=== PATIENT | female | born 1935 | race Caucasian/White ===

== ENCOUNTER 2018-07-30 11:59 | Inpatient (IN) | payer MEDICARE ==
[~2018-07-30] VITALS: Ht 165.1 cm; Wt 57.3 kg
[2018-07-30 12:40] LABS: BASOPHILS 0.3 % (0-2); EOSINOPHILS 2.1 % (0-7); HEMATOCRIT 37.7 % (36.0-48.0); HEMOGLOBIN 12.2 g/dL (12-16); IMMATURE GRANULOCYTES 0.3 % (0-5); LYMPHOCYTES 11.6 % (15-50); MCH 28.9 pg (26.0-34.0); MCHC 32.4 g/dL (31.0-37.0); MCV 89.3 fL (80.0-100.0); MEAN PLATELET VOLUME 10.9 fL (7.4-10.4); MONOCYTES 8.2 % (2-11); NEUTROPHILS 77.5 % (40-80); PLATELET COUNT 227 10x3/uL (130-400); RBC 4.22 10x6/uL (4.00-5.40); RDW 13.7 % (11.5-14.5); WBC 7.8 10x3/uL (4.8-10.8)
[2018-07-30 12:56] LABS: ALBUMIN 2.6 g/dL (3.4-5.0); ALKALINE PHOSPHATASE 115 U/L (46-116); ALT (SGPT) 18 U/L (10-68); BILIRUBIN - TOTAL 0.32 mg/dL (0.2-1.3); CALC OSMOLALITY 286 mosm/kg (275-300); CALCIUM 8.9 mg/dL (8.5-10.1); CARBON DIOXIDE 33.2 mmol/L (21.0-32.0); CHLORIDE - SERUM 103 mmol/L (98-107); CREATININE - SERUM 1.4 mg/dL (0.6-1.3); GLUCOSE 95 mg/dL (74-106); POTASSIUM - SERUM 3.1 mmol/L (3.5-5.1); PROTEIN - SERUM 7.1 g/dL (6.4-8.2); SODIUM 141 mmol/L (136-145); UREA NITROGEN 28 mg/dL (7-18); eGFR NON AFRICAN AMERICAN 38 mL/min (90-120)
[2018-07-30 13:08] LABS: CKMB 2.6 U/L (0.0-3.6); CREATINE KINASE 35 UL (21-215); PRO BNP 4570 pg/mL (0-450)
[2018-07-30 13:09] LABS: APTT 30.2 SECONDS (22.8-39.4); INR 0.98 (0.85-1.17); PROTIME 12.5 SECONDS (11.6-15.0); TROPONIN-I < 0.017 ng/mL (0.000-0.060)
[2018-07-30 14:24] VITALS: BP 128/64
[2018-07-30 15:13] VITALS: BP 132/78
[2018-07-30 15:50] VITALS: BP 147/74
--- NOTE | 2018-07-30 18:06 | MORECARE ---
CASE MANAGEMENT DISCHARGE SUMMARY PATIENT: MIRIAN VALENZUELA UNIT: [id number] ADM DATE: 07/30/18 AGE: 83 : 35 SEX: F ROOM/BED: D.2136 AUTHOR: DARRON AGOSTO PHYSICIAN: REFERRING PHYSICIAN: JING ZHONG MD DATE OF SERVICE: 07/30/18 Discharge Plan Patient Name: MIRIAN VALENZUELA Facility: [facility]:[place] : 1935 Planned Disposition: Home Anticipated Discharge Date: Discharge Date: Expected LOS: Initial Reviewer: [email or web address] Initial Review Date: 07/30/2018 Generated: 07/30/18 7:05 pm Patient Name: MIRIAN VALENZUELA Page [id number] at 1806 All edits/amendments must be made on the electronic document DICTATION DATE: 07/30/181804 AUTOMATIC SCREWMAKER: TAYLOR 07/30/181804 RPT#: [id number] DC DATE: STATUS: ADM IN [facility] [address] [place] [address] END OF REPORT
--- NOTE | 2018-07-30 18:13 | MORECARE ---
CASE MANAGEMENT DISCHARGE SUMMARY PATIENT: MIRIAN VALENZUELA UNIT: [id number] ADM DATE: 07/30/18 AGE: 83 : 35 SEX: F ROOM/BED: D.2136 AUTHOR: DARRON AGOSTO PHYSICIAN: REFERRING PHYSICIAN: JING ZHONG MD DATE OF SERVICE: 07/30/18 Discharge Plan Patient Name: MIRIAN VALENZUELA Facility: [facility]:[place] : 1935 Planned Disposition: Home Anticipated Discharge Date: Discharge Date: Expected LOS: Initial Reviewer: [email or web address] Initial Review Date: 07/30/2018 Generated: 07/30/18 7:13 pm DCPIA - Discharge Planning Initial Assessment Updated by [email or web address]: Ruby Penn on 07/30/18 6:07 pm * Is the patient Alert and Oriented? Yes * How many steps to enter\exit or inside your home? ONE * PCP DR CINDI ENNIS IN [place] * Pharmacy [facility] [address] [facility]. * Preadmission Environment Home with Family * ADLs Independent * Equipment None * Other Equipment DENIES DME * List name and contact numbers for known caregivers / representatives who currently or will assist patient after discharge: PABLITO BARRY [phone] DAUGHTER * Verbal permission to speak to the caregivers and representatives has been obtained from the patient. Yes * Community resources currently utilized None * Please name any agencies selected above. N/A * Additional services required to return to the preadmission environment? No * Can the patient safely return to the preadmission environment? Yes * Has this patient been hospitalized within the prior 30 days at any hospital? No Last DP export: 07/30/18 5:05 pm Patient Name: MIRIAN VALENZUELA Page [phone] at 1813 All edits/amendments must be made on the electronic document DICTATION DATE: 07/30/181811 LEGAL OFFICE ADMINISTRATOR: TAYLOR 07/30/181811 RPT#: [id number] DC DATE: STATUS: ADM IN [facility] [address] [place] [address] END OF REPORT
--- NOTE | 2018-07-30 18:20 | MORECARE ---
CASE MANAGEMENT DISCHARGE SUMMARY PATIENT: MIRIAN VALENZUELA UNIT: [id number] ADM DATE: 07/30/18 AGE: 83 : 35 SEX: F ROOM/BED: D.7776 AUTHOR: SURENDRA,DOC PHYSICIAN: REFERRING PHYSICIAN: JING ZHONG MD DATE OF SERVICE: 07/30/18 Discharge Plan Patient Name: MIRIAN VALENZUELA Facility: [facility]:[place] : 1935 Planned Disposition: Home Anticipated Discharge Date: Discharge Date: Expected LOS: Initial Reviewer: [email or web address] Initial Review Date: 07/30/2018 Generated: 07/30/18 7:20 pm Comments DCP- Discharge Planning Updated by [email or web address]: Ruby Penn on 07/30/18 5:[address] MET WITH PATIENT AND HER DAUGHTER IN LAW, SHRUTHI AT THE BEDSIDE. THE PATIENT GAVE PERMISSION TO SPEAK WITH SHRUTHI BEING PRESENT. PATIENT IS ALERT AND ORIENTED X4. PATIENT LIVES IN HER OWN HOME AND HER DAUGHTER, LEILA, LIVES WITH HER. SHE HAS GOOD FAMILY SUPPORT. WILL HAVE TRANSPORTATION TO HOME. SHE HAS ONE STEP TO ENTER HER HOME FROM THE FRONT DOOR. NO STEPS OR STAIRS FROM THE SIDE DOOR. 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 FALLING MORE FREQUENTLY AND STATES HER BALANCE IS POOR. SHE DOES NOT USE ANY DEVICE TO AMBULATE. DENIES ANY DME. PHYSICAL THERAPY EVAL MAYBE HELPFUL. PCP- DR CINDI JIMENEZ. PULOMONARY CONSULT- DR MARTINEZ- PATIENT IS WEARING NASAL O2 BUT DOES NOT HAVE OXYGEN AT HOME. SHE IS ON 2/L WITH O2 SAT OF 96% AT REST. PATIENT AND DAUGHTER IN LAW DENIES ANY NEEDS FOR SERVICES AT HOME AT THIS TIME. CM EXPLAINED CASE MANAGEMENT CAN ASSIST IF THEY CHANGE THEIR MINDS. WILL FOLLOW TO ASSIST IS APPROPRIATE. DCPIA - Discharge Planning Initial Assessment Updated by [email or web address]: Ruby Penn on 07/30/18 6:07 pm * Is the patient Alert and Oriented? Yes * How many steps to enter\exit or inside your home? ONE * PCP DR CINDI ENNIS IN [place] * Pharmacy [facility] [address] [facility]. * Preadmission Environment Home with Family * ADLs Independent * Equipment None * Other Equipment DENIES DME * List name and contact numbers for known caregivers / representatives who currently or will assist patient after discharge: PABLITO Barrett-[phone]- DAUGHTER * Verbal permission to speak to the caregivers and representatives has been obtained from the patient. Yes * Community resources currently utilized None * Please name any agencies selected above. N/A * Additional services required to return to the preadmission environment? No * Can the patient safely return to the preadmission environment? Yes * Has this patient been hospitalized within the prior 30 days at any hospital? No Last DP export: 07/30/18 5:13 pm Patient Name: MIRIAN VALENZUELA Page [id number] at 1820 All edits/amendments must be made on the electronic document DICTATION DATE: 07/30/181819 PREDICTIVE MAINTENANCE TECHNICIAN: TAYLOR 07/30/181819 RPT#: [id number] DC DATE: STATUS: ADM IN [facility] [address] [place] [address] END OF REPORT
[2018-07-30 20:00] VITALS: BP 123/59
--- NOTE | 2018-07-30 20:09 | NUR ---
ROUNDS COMPLETED. VSS, AAOX3. RR EVEN AND UNLABORED. PT SITTING UP IN BED WITH EYES OPEN, ENSURE PROVIDED PER PT'S REQUEST. PT DENIES ANY FURTHER NEEDS AT THIS TIME. WILL CPOC. CL IN REACH, BED IN LOW, SR UP X2.
[2018-07-30 20:59] VITALS: BP 123/59; BMI 17.2
[2018-07-31] VITALS: BP 117/57
[2018-07-31 04:30] VITALS: BP 102/49
[2018-07-31 06:17] LABS: BASOPHILS 0 % (0-2); EOSINOPHILS 0 % (0-7); HEMATOCRIT 35.9 % (36.0-48.0); HEMOGLOBIN 11.7 g/dL (12-16); IMMATURE GRANULOCYTES 0.2 % (0-5); LYMPHOCYTES 9.7 % (15-50); MCH 28.8 pg (26.0-34.0); MCHC 32.6 g/dL (31.0-37.0); MCV 88.4 fL (80.0-100.0); MEAN PLATELET VOLUME 11.3 fL (7.4-10.4); MONOCYTES 0.9 % (2-11); NEUTROPHILS 89.2 % (40-80); PLATELET COUNT 251 10x3/uL (130-400); RBC 4.06 10x6/uL (4.00-5.40); RDW 13.5 % (11.5-14.5); WBC 5.9 10x3/uL (4.8-10.8)
[2018-07-31 06:39] LABS: ALBUMIN 2.2 g/dL (3.4-5.0); ANION GAP 9.5 mmol/L (8-16); BILIRUBIN - TOTAL 0.31 mg/dL (0.2-1.3); CALCIUM 8.9 mg/dL (8.5-10.1); CARBON DIOXIDE 33.8 mmol/L (21.0-32.0); CREATININE - SERUM 1.4 mg/dL (0.6-1.3); POTASSIUM - SERUM 3.3 mmol/L (3.5-5.1); PROTEIN - SERUM 6.7 g/dL (6.4-8.2)
--- NOTE | 2018-07-31 07:30 | NUR ---
A/A/OX4. DENIES ANY PAIN OR DISCOMFORT. REMAINS NPO FOR BRONCH TODAY AND IS AWARE AND UNDERSTANDS THIS. NO REQUESTS VOICED. ASSESSMENT COMPLETED WITH NO NEW PROBLEMS NOTED. BED IN LOW POSITION AND CALL LIGHT IN REACH. WILL CONTINUE POC.
[2018-07-31 09:40] VITALS: BP 105/54
--- NOTE | 2018-07-31 11:00 | NUR ---
DR. ORTIZ HERE AND PROCEDURE PERFORMED AT BEDSIDE. REMOVAL OF CYST BELOW LEFT BREAST. PT TOLERATED WELL. DRESSING C/D/I WITH NO C/O PAIN. SPECIMEN TAKEN TO LAB FOR PATHOLOGY.
--- NOTE | 2018-07-31 12:23 | NUR ---
EARLIER, DR. ORTIZ CALLED TO EXCISE CYST UNDER L BREAST. CONSENTS SIGNED.
--- NOTE | 2018-07-31 12:24 | NUR ---
1200 DR. ORTIZ HERE FOR BEDSIDE CYST EXCISION. [facility] ARENAS IS ASSISTING. TIME OUT DONE AMD SITE OF L BREAST CYST EXCISION CONFIRMED. PT DRAPED WITH STERILE TOWELS. LOCAL ANESTHESIA DONE BY DR. ORTIZ. CYST EXCISED. INCISION CLOSED AND DRESSSED WITH 4X4 AND TAPE. MINIMAL BLOOD LOSS. CYST IS PLACE IN SPECIMEN CONTAINER AND LABELED BY DR. ORTIZ. SPECIMEN SENT TO LAB. PT DANAE PROCEDURE WELL.
[2018-07-31 13:14] VITALS: BP 94/50
[2018-07-31 13:54] VITALS: Ht 165.1 cm; Wt 57.3 kg
[2018-07-31 20:00] VITALS: BP 82/35
[2018-07-31 20:38] LABS: MACROPHAGES BF 26 %; MESOTHELIALS BF 4 %; NEUT - BF 41 %
--- NOTE | 2018-07-31 21:34 | NUR ---
CHECKED PT BP Q5MINS POST PROCEDURE. BP 75/49, 69/36, 65/[address] ZHONG. ORDERED 500CC BOLUS. BOLUS CURRENTLY INFUSING. WILL CTM. CL IN REACH, FAMILY @BEDSIDE.
--- NOTE | 2018-07-31 22:05 | NUR ---
RECHECKED BP AFTER BOLUS. BP NOW 117/54. WILL CTM. PT STATES SHE IS FEELING GREAT. DENIES ANY WEAKNESS, HEADACHES OR LIGHTHEADNESS. FAMILY @BEDSIDE.
[2018-08-01] VITALS (7 sets, daily range): BP systolic 89–121; BP diastolic 41–58
--- NOTE | 2018-08-01 00:03 | NUR ---
PT STATES "I FIND IT DIFFICULT TO BREATHE." ELEVATED HOB, BUMPED O2 TO 3L. PT CURRENT O2SAT 96. EDUCATE PT ON NEED TO TURN COUGH AND DEEP BREATHS. PT VOICED THANKS. WILL CTM. FAMILY @BEDSIDE.
[2018-08-01] MEDS ORDERED: ZOCOR20 MG PO (04:07)
[2018-08-01] MEDS ORDERED: LEXAPRO10 MG PO (04:07)
[2018-08-01] MEDS ORDERED: LISINOPRIL10 MG PO (04:07)
[2018-08-01] MEDS ORDERED: VALIUM5 MG PO (04:08)
[2018-08-01] MEDS ORDERED: FUROSEMIDE40 MG PO (04:08)
[2018-08-01] MEDS ORDERED: FLUTICASONE PRO16 GM NASAL (04:09)
[2018-08-01] MEDS ORDERED: COZAAR100 MG PO (04:09)
[2018-08-01] MEDS ORDERED: ESTRACE1 MG PO (04:09)
[2018-08-01 06:02] LABS: BASOPHILS 0 % (0-2); EOSINOPHILS 0 % (0-7); HEMOGLOBIN 10.5 g/dL (12-16); IMMATURE GRANULOCYTES 0.3 % (0-5); LYMPHOCYTES 2.5 % (15-50); MCH 28.3 pg (26.0-34.0); MCHC 31.8 g/dL (31.0-37.0); MCV 88.9 fL (80.0-100.0); MEAN PLATELET VOLUME 11.3 fL (7.4-10.4); MONOCYTES 1.5 % (2-11); NEUTROPHILS 95.7 % (40-80); PLATELET COUNT 225 10x3/uL (130-400); RBC 3.71 10x6/uL (4.00-5.40); RDW 14.1 % (11.5-14.5)
[2018-08-01 06:16] LABS: ANION GAP 8.8 mmol/L (8-16); CALCIUM 8.4 mg/dL (8.5-10.1); CARBON DIOXIDE 31.4 mmol/L (21.0-32.0); CREATININE - SERUM 1.4 mg/dL (0.6-1.3); POTASSIUM - SERUM 3.2 mmol/L (3.5-5.1)
[2018-08-01 06:20] LABS: WBC 15.3 10x3/uL (4.8-10.8)
--- NOTE | 2018-08-01 08:01 | NUR ---
REPLACED POTASSIUM PER ELECTROLYTE PROTOCOL. WILL CONTINUE TO FOLLOW.
--- NOTE | 2018-08-01 13:42 | NUR ---
POTASSIUM REDRAW AFTER TREATMENT IS IN NORMAL RANGE NO FURTHER ACTION NEEDED AT THIS TIME.
--- NOTE | 2018-08-01 14:48 | NUR ---
PT CALLED REQUESTING ENSURE WITH MEALS ALONG WITH HER PRN ANXIETY PILL. PROVIDED PT WITH HER ANXIETY MEDICATION AND GOT ENSURES ORDERED. PT VOICED THANKS AND DENIES ANY FURTHER ENEDS AT THIS TIME. CL IN REACH, BED IN LOWEST, SIDE RAILS X2. WILL CTM.
--- NOTE | 2018-08-01 19:31 | NUR ---
RECIEVED UP IN BED WITH SEVERAL VISITORS AT BEDSIDE. ALERT AND ORIENTED X4. REQUIRES ASSIST TO TRANSFER AND AMBULATE. CONTINENT OF B/B. O2@ 3.5 LITERS PER N/C. LUNG SOUNDS CRACKLE BILATERALLY. IV TO LEFT FA SL.. DSG UNDER LEFT BREAST AND TO RIGHT BACK. DENIES ANY NEEDS AT THIS TIME.
[2018-08-02 04:30] VITALS: BP 129/60
[2018-08-02 05:33] LABS: BASOPHILS 0 % (0-2); EOSINOPHILS 0 % (0-7); HEMATOCRIT 34.3 % (36.0-48.0); HEMOGLOBIN 10.7 g/dL (12-16); IMMATURE GRANULOCYTES 0.7 % (0-5); LYMPHOCYTES 1.8 % (15-50); MCH 28.1 pg (26.0-34.0); MCHC 31.2 g/dL (31.0-37.0); MEAN PLATELET VOLUME 11.5 fL (7.4-10.4); MONOCYTES 1.1 % (2-11); NEUTROPHILS 96.4 % (40-80); PLATELET COUNT 231 10x3/uL (130-400); RBC 3.81 10x6/uL (4.00-5.40); RDW 14.3 % (11.5-14.5); WBC 16.9 10x3/uL (4.8-10.8)
[2018-08-02 05:41] LABS: ANION GAP 8.5 mmol/L (8-16); CALCIUM 8.7 mg/dL (8.5-10.1); CARBON DIOXIDE 31.6 mmol/L (21.0-32.0); CREATININE - SERUM 1.3 mg/dL (0.6-1.3); POTASSIUM - SERUM 4.1 mmol/L (3.5-5.1)
[2018-08-02 07:56] VITALS: BP 123/57
--- NOTE | 2018-08-02 10:27 | NUR ---
PT SITTING UP IN HER BEDSIDE CHAIR STATES SHE IS FEELING GOOD. RR NONLABORED ON NC @3.5L. PT COUGHING UP BRIGHT RED SPUTUM SCANT/MODERATE AMOUNTS, 4 TISSUES THROWN AWAY WITH SMALL AMOUNTS. AT BEDSIDE AND SEEN AND D/C FLUTTER VALVE TO AVOID IRRITATION. NEW MEDICATION STARTED MUCINEX AND TEACHING PROVIDED TO PT. PT VERBALIZED UNDERSTANDING AND WILL SHOW US ANY SPUTUM OR BLOOD. CL IN REACH, FAMILY AT BEDSIDE. WILL CTM.
[2018-08-02 11:22] VITALS: BP 133/66
[2018-08-02 13:07] LABS: ACID FAST SMEAR Negative (()); AFB SPECIMEN PROCESSING Concentration (())
[2018-08-02 16:49] VITALS: BP 115/58
--- NOTE | 2018-08-02 18:04 | NUR ---
END OF SHIFT ROUNDS COMPLETED. PT STATES SHE HAD A GOOD DAY AND IS FEELING BETTER OVERALL. NO FURTHER BLOODY SPUTUM. RR NONLABORED WITH NC @3.5L IN PLACE WILL TAPER DOWN TO 2.5L NC AND SEE HOW SHE DOES SHE DOESNT NORMALLY REQUIRE OXYGEN AT HOME. FAMILY AT BEDSIDE. CL IN REACH, BED IN LOWEST, SIDE RAILS X2. WILL CTM.
--- NOTE | 2018-08-02 19:49 | NUR ---
RECIEVED UP IN BED WITH MANY VISITORS AT BEDSIDE. ALERT AND ORIENTED X4. IV TO LEFT FA SL..DSG UNDER LEFT BREAST CDI. O2 @ 3.5 LITERWS PER N/C IN PLACE. RESP EVEN AND UNLABORED. BSX4Q. DENIES ANY NEEDS AT THIS TIME.
[2018-08-02 20:07] VITALS: BP 134/62
[2018-08-02 23:49] VITALS: BP 150/63
[2018-08-03 04:23] VITALS: BP 101/56
[2018-08-03 05:03] LABS: BASOPHILS 0 % (0-2); EOSINOPHILS 0 % (0-7); HEMATOCRIT 32.8 % (36.0-48.0); HEMOGLOBIN 10.5 g/dL (12-16); IMMATURE GRANULOCYTES 0.7 % (0-5); LYMPHOCYTES 2.8 % (15-50); MCH 28.8 pg (26.0-34.0); MCV 89.9 fL (80.0-100.0); MEAN PLATELET VOLUME 11.2 fL (7.4-10.4); MONOCYTES 2.5 % (2-11); PLATELET COUNT 195 10x3/uL (130-400); RBC 3.65 10x6/uL (4.00-5.40); RDW 14.4 % (11.5-14.5); WBC 14.9 10x3/uL (4.8-10.8)
[2018-08-03 05:39] LABS: ANION GAP 9.3 mmol/L (8-16); CALCIUM 9.1 mg/dL (8.5-10.1); CARBON DIOXIDE 31.9 mmol/L (21.0-32.0); CREATININE - SERUM 1.2 mg/dL (0.6-1.3); POTASSIUM - SERUM 4.2 mmol/L (3.5-5.1)
--- NOTE | 2018-08-03 07:10 | NUR ---
ASSESSMENT PER FLOW SHEET. PT IS WITHOUT DISTRESS. FAMILY AT BEDSIDE.CALL LIGHT IN REACH
[2018-08-03 08:08] VITALS: BP 94/45
[2018-08-03 11:57] VITALS: BP 97/54
[2018-08-03 15:44] VITALS: BP 113/68
--- NOTE | 2018-08-03 16:59 | NUR ---
FAMILY AT BEDSIDE. PT REMAINS WITHOUT NEEDS
--- NOTE | 2018-08-03 18:36 | NUR ---
REMAINS WITHIOUT CHANGE FROM INITIAL SHIFTY ASSESSMENT.CONT PLAN OF CARE
--- NOTE | 2018-08-03 19:01 | NUR ---
IV SITED TO LEFT UPPER ARM X1 STICK USING ASEPTIC TECH,22G
--- NOTE | 2018-08-03 19:05 | NUR ---
IV LEFT FA DCD WITH CATH TIP INTACT
--- NOTE | 2018-08-03 19:29 | NUR ---
EVENING ROUNDS COMPLETED. REPORT RECEIVED. PT SITTING UP IN BED WITH EYES OPEN, RR EVEN AND UNLABORED. OXYGEN AT 3.5 LITERS BY NASAL CANNULA. BED IN LOW POSITION. NO S/S OF DISTRESS NOTED. INTRODUCED SELF TO PT. PT DENIES FURTHER NEEDS AT THIS TIME. ORDERED ABX INFUSING THROUGH LEFT UPPER ARM PIV. CALL LIGHT IN REACH. WILL CTM.
[2018-08-03 21:25] VITALS: BP 138/57
[2018-08-04 01:56] VITALS: BP 158/61
--- NOTE | 2018-08-04 05:00 | NUR ---
I have reviewed this patient and I concur with the Shift Assessment completed by the Licensed Practical Nurse today this shift.
[2018-08-04 06:22] LABS: BASOPHILS 0 % (0-2); EOSINOPHILS 0 % (0-7); HEMATOCRIT 34.3 % (36.0-48.0); HEMOGLOBIN 10.9 g/dL (12-16); IMMATURE GRANULOCYTES 0.7 % (0-5); LYMPHOCYTES 2.5 % (15-50); MCH 28.6 pg (26.0-34.0); MCHC 31.8 g/dL (31.0-37.0); MEAN PLATELET VOLUME 11.5 fL (7.4-10.4); MONOCYTES 2.1 % (2-11); NEUTROPHILS 94.7 % (40-80); PLATELET COUNT 223 10x3/uL (130-400); RBC 3.81 10x6/uL (4.00-5.40); RDW 14.5 % (11.5-14.5); WBC 13.6 10x3/uL (4.8-10.8)
[2018-08-04 06:23] VITALS: BP 107/50
[2018-08-04 06:26] LABS: CALCIUM 8.8 mg/dL (8.5-10.1); CARBON DIOXIDE 31.4 mmol/L (21.0-32.0); POTASSIUM - SERUM 4.4 mmol/L (3.5-5.1)
--- NOTE | 2018-08-04 07:43 | NUR ---
MORNING ROUNDS MADE. PT LAYING IN BED RESTING. A/O X 4. DENIES PAIN AT THIS TIME. FAMILY AT BEDSIDE. L UPPER ARM IV SL. DRSG C/D/I, NO REDNESS OR EDEMA NOTED, PATENT. 3.5L O2 VIA NC. BREATHING EVEN AND UNLABORED. DRSG TO L BREAST, C/D/I. NO COUGH NOTED AT THIS TIME. NO EDEMA NOTED. DENIES FURTHER CONCENRS AT THIS TIME. FALL PRECAUTIONS IN PLACE. NON SKID SOCKS ON. YELLOW GOWN ON. SR UP X 2. BED LOWERED AND LOCKED. CL IN REACH. WILL CTM.
[2018-08-04 07:44] VITALS: BP 120/61
--- NOTE | 2018-08-04 08:46 | NUR ---
VITALS STABLE. PT TOOK MEDS WITHOUT DIFFICULTY. DENIES PAIN AT THIS TIME. FAMILY AT BEDSIDE. BREATHING EVEN AND UNLABORED. IV TO L AC, PATENT, NO REDNESS OR EDEMA NOTED. DRSG C/D/I. NO FURTHER CONCERNS AT THIS TIME. FALL PRECAUTIONS IN PLACE. FAMILY AT BEDSIDE. WILL CTM.
--- NOTE | 2018-08-04 10:42 | NUR ---
PT COUGHING UP DARK RED BLOOD. WILL CTM.
[2018-08-04 11:49] VITALS: BP 123/65
--- NOTE | 2018-08-04 12:26 | EC ---
PATIENT:MIRIAN VALENZUELA DATE OF SERVICE: 07/30/18 SEX: F MEDICAL RECORD: [id number] DATE OF : [birth year] LOCATION:D.M2 D.213 AGE OF PATIENT: 83 ADMISSION DATE: 07/30/18 REFERRING PHYSICIAN: INTERPRETING PHYSICIAN: JULIO CESPEDES MD ECHOCARDIOGRAM REPORT ECHO CHARGES 4 ECHO COMPLETE Date: 07/31/18 CLINICAL DIAGNOSIS: NEW ONSET CHF ECHOCARDIOGRAPHIC MEASUREMENTS (adult normal given) AC root (d.<3.7cm) 2.8 cm LV Septum d (<1.2 cm> 2.4 cm Valve Excursion 1.7 cm LV Septum (systole) 2.5 cm Left Atria (s.<4.0cm> 3.0 cm LVPW d(<1.2cm) 1.5 cm RV (d.<2.3cm) 1.7 cm LVPW (sytole) 2.0 cm LV diastole(<5.6CM) 2.4 cm MV E-F(>70mm/sec) cm LV systole 0.8 cm LVOT Diameter 1.6 cm MV exc.(>10mm) cm Est.ejection fraction (50-75%) % DOPPLER: LVIT cm/sec A 163 cm/sec E 85.0 cm/sec LA cm/sec RVSP 19.0 mmHg LVOT 108 cm/sec AOP1/2T m/s Asc. Ao 141 cm/sec RVOT 106 cm/sec RA cm/sec PA 122 cm/sec AV Gradient Peak 8.0 mmHg AV Mean 3.9 mmHg AV Area 1.5 cm MV Gradient Peak 14.0 mmHg MV Mean 4.4 mmHg MV Area cm COMMENTS: Pecan Grower: 1 MALKA GILMOREOE Wheel Truing Machine Tender: 3 Dr. Cruz TAPE# PACS Pericardial Effusion Y DATE OF SERVICE: Adequate 2D, Color Flow, Spectral Doppler, and M-Mode LVH is present. LV internal dimension is normal. Wall motion is normal. EF is greater than or equal to 55%. Aortic valve sclerosis without stenosis by Doppler interrogation. Left atrium is normal at 3.0 cm. Mitral valve shows no prolapse. Mitral annular calcification is present with only mild MR. Right-sided chambers are normal. Trace TR. ECHOCARDIOGRAM REPORT [id number] MIRIAN VALENZUELA TRANSINT:[id number] Voice Confirmation ID: [id number] DOCUMENT ID: [id number] JULIO CESPEDES MD at 1226 CC: [id number] DICTATION DATE: 07/31/18 144 BAG SEALER: 07/31/182026 ADM IN [facility] [address] [place] [id number]
[2018-08-04 14:57] VITALS: BP 131/69
--- NOTE | 2018-08-04 16:31 | NUR ---
I have reviewed this patient and I concur with the Shift Assessment completed by the Licensed Practical Nurse today this shift.
[2018-08-04 20:31] VITALS: BP 145/61
[2018-08-05] VITALS (7 sets, daily range): BP systolic 108–139; BP diastolic 51–91
--- NOTE | 2018-08-05 03:47 | NUR ---
I have reviewed this patient and I concur with the Shift Assessment completed by the Licensed Practical Nurse today this shift.
[2018-08-05 06:25] LABS: BASOPHILS 0 % (0-2); EOSINOPHILS 0 % (0-7); HEMATOCRIT 34.4 % (36.0-48.0); HEMOGLOBIN 10.9 g/dL (12-16); IMMATURE GRANULOCYTES 0.5 % (0-5); MCH 28.4 pg (26.0-34.0); MCHC 31.7 g/dL (31.0-37.0); MCV 89.6 fL (80.0-100.0); MEAN PLATELET VOLUME 11.5 fL (7.4-10.4); MONOCYTES 3.5 % (2-11); PLATELET COUNT 243 10x3/uL (130-400); RBC 3.84 10x6/uL (4.00-5.40); RDW 14.6 % (11.5-14.5); WBC 14.6 10x3/uL (4.8-10.8)
[2018-08-05 06:52] LABS: ANION GAP 6.7 mmol/L (8-16); CALCIUM 8.6 mg/dL (8.5-10.1); CARBON DIOXIDE 32.6 mmol/L (21.0-32.0); CREATININE - SERUM 1.1 mg/dL (0.6-1.3); MAGNESIUM - SERUM 2.3 mg/dL (1.8-2.4); PHOSPHOROUS 3.6 mg/dL (2.5-4.9); POTASSIUM - SERUM 4.3 mmol/L (3.5-5.1)
--- NOTE | 2018-08-05 07:53 | NUR ---
PT RESTING IN BED. NO SIGNS OF DISTRESS. IV TO LEFT FORARM PATENT NO REDNESS OR TENDERNESS. ON TELEMETRY 107 CONT. A-FIB. ON 3.5L NC. DENIES ANY NEED AT THIS TIME. CALL LIGHT IN REACH. BED LOW POSITION. NO FAMILY AT BEDSIDE AT THIS TIME.
--- NOTE | 2018-08-05 09:06 | NUR ---
Nutrition follow-up: Visited with pt during rounds. Pt is happy with meals and reports a good appetite. Sister states she is filling out pts menus and is assisting pt with eating Diet: Low sodium with po intake 100% of last 3 meals Labs reviewed Wt: 109# +BM RDN following.
--- NOTE | 2018-08-05 10:22 | NUR ---
I have reviewed this patient and I concur with the Shift Assessment completed by the Licensed Practical Nurse today this shift.
--- NOTE | 2018-08-05 19:50 | NUR ---
RESUMING PT CARE. PT IS ALERT LAYING IN BED. FAMILY AT BEDSIDE. NO C/O VOICED. NO S/S OF DISTRESS NOTED. BED IN LOW POSITION WITH CALL LIGHT IN REACH. SIDE RAILS UP X 2. WILL CONTINUE TO MONITOR PT AND FOLLOW PLAN OF CARE.
--- NOTE | 2018-08-06 02:10 | NUR ---
I have reviewed this patient and I concur with the Shift Assessment completed by the Licensed Practical Nurse today this shift.
[2018-08-06 05:20] VITALS: BP 130/50
[2018-08-06 05:40] LABS: BASOPHILS 0.1 % (0-2); EOSINOPHILS 0.1 % (0-7); HEMATOCRIT 34.7 % (36.0-48.0); HEMOGLOBIN 10.8 g/dL (12-16); IMMATURE GRANULOCYTES 0.8 % (0-5); LYMPHOCYTES 6.9 % (15-50); MCH 28.2 pg (26.0-34.0); MCHC 31.1 g/dL (31.0-37.0); MCV 90.6 fL (80.0-100.0); MEAN PLATELET VOLUME 11.5 fL (7.4-10.4); MONOCYTES 9.4 % (2-11); NEUTROPHILS 82.7 % (40-80); PLATELET COUNT 259 10x3/uL (130-400); RBC 3.83 10x6/uL (4.00-5.40); RDW 14.8 % (11.5-14.5); WBC 18.1 10x3/uL (4.8-10.8)
[2018-08-06 06:14] LABS: ALBUMIN 1.9 g/dL (3.4-5.0); ANION GAP 8.3 mmol/L (8-16); BILIRUBIN - TOTAL 0.4 mg/dL (0.2-1.3); CALCIUM 8.7 mg/dL (8.5-10.1); CARBON DIOXIDE 33.9 mmol/L (21.0-32.0); POTASSIUM - SERUM 4.2 mmol/L (3.5-5.1); PROTEIN - SERUM 5.7 g/dL (6.4-8.2)
--- NOTE | 2018-08-06 06:40 | NUR ---
PLEASE CHECK HEART RATE BEFORE GIVING CARDIZEM 120MG BY MOUTH.
[2018-08-06 08:00] VITALS: BP 107/44
[2018-08-06 12:38] VITALS: BP 108/49
--- NOTE | 2018-08-06 12:54 | NUR ---
I have reviewed this patient and I concur with the Shift Assessment completed by the Licensed Practical Nurse today this shift.
[2018-08-06 16:30] VITALS: BP 128/59
--- NOTE | 2018-08-06 19:46 | NUR ---
PATIENT SITTING UP IN BED. NO COMPLAINTS AT THIS TIME. NO DISTRESS NOTED. FAMILY AT BEDSIDE.
[2018-08-06 20:00] VITALS: BP 106/55
[2018-08-07] VITALS: BP 121/56
--- NOTE | 2018-08-07 02:28 | NUR ---
PATIENT LAYING IN BED. EYES CLOSED, CHEST RISING AND FALLING. NO DISTRESS NOTED. FAMILY AT BEDSIDE.
[2018-08-07 04:00] VITALS: BP 123/52
[2018-08-07 07:13] LABS: BASOPHILS 0 % (0-2); EOSINOPHILS 0.2 % (0-7); HEMATOCRIT 32.5 % (36.0-48.0); HEMOGLOBIN 10.1 g/dL (12-16); IMMATURE GRANULOCYTES 0.6 % (0-5); LYMPHOCYTES 7.7 % (15-50); MCH 28.5 pg (26.0-34.0); MCHC 31.1 g/dL (31.0-37.0); MCV 91.5 fL (80.0-100.0); MEAN PLATELET VOLUME 11.7 fL (7.4-10.4); MONOCYTES 10.5 % (2-11); PLATELET COUNT 236 10x3/uL (130-400); RBC 3.55 10x6/uL (4.00-5.40); RDW 14.4 % (11.5-14.5)
--- NOTE | 2018-08-07 07:35 | NUR ---
PT SITTING UP IN BED WITH FAMILY AT BEDSIDE. NO ACUTE DISTRESS NOTED. O2 @ 3L NC IN PLACE. SALINE LOC TO LEFT FOREARM, PATENT, WITHOUT REDNESS OR EDEMA. DENIES PAIN AT THIS TIME. PT DOES REPORT OCCASSIONAL COUGH, REPORTS "NOT BAD ITS BEEN BEING." DENIES FURTHER NEEDS AT THIS TIME. ENCOURAGED TO CALL WITH NEEDS. CL WITHIN REACH. CONTINUE POC
[2018-08-07 07:36] VITALS: BP 134/60
[2018-08-07 07:41] LABS: ALBUMIN 1.7 g/dL (3.4-5.0); ANION GAP 7.1 mmol/L (8-16); BILIRUBIN - TOTAL 0.27 mg/dL (0.2-1.3); CALCIUM 8.8 mg/dL (8.5-10.1); CARBON DIOXIDE 35.5 mmol/L (21.0-32.0); POTASSIUM - SERUM 3.6 mmol/L (3.5-5.1); PROTEIN - SERUM 5.2 g/dL (6.4-8.2)
--- NOTE | 2018-08-07 10:15 | NUR ---
PT SITTING UP IN CHAIR AT BEDSIDE. DENIES FURTHER NEEDS AT THIS TIME. CL WITHIN REACH. ENCOURAGED TO CALL WITH NEEDS. CONTINUE TO MONITOR.
[2018-08-07 11:24] VITALS: BP 121/55
[2018-08-07 15:39] VITALS: BP 116/58
--- NOTE | 2018-08-07 17:12 | MORECARE ---
CASE MANAGEMENT DISCHARGE SUMMARY PATIENT: MIRIAN VALENZUELA UNIT: [id number] ADM DATE: 07/30/18 AGE: 83 : 35 SEX: F ROOM/BED: D.6686 AUTHOR: SURENDRA,DOC PHYSICIAN: REFERRING PHYSICIAN: JING ZHONG MD DATE OF SERVICE: 08/07/18 Discharge Plan Patient Name: MIRIAN VALENZUELA Facility: [facility]:[place] : 1935 Planned Disposition: Home Anticipated Discharge Date: Discharge Date: Expected LOS: Initial Reviewer: [email or web address] Initial Review Date: 07/30/2018 Generated: 08/07/18 6:11 pm Comments DCP- Discharge Planning Updated by [email or web address]: Manny Preez on 08/07/18 4:[address] Patient Name: MIRIAN VALENZUELA Admission Status: ER Accout number: [id number] Admission Date: 07-30-2018 : 1935 Admission Diagnosis:SHORTNESS OF BREATH Attending: JING ZHONG Current LOS: 8 Anticipated DC Date: Planned Disposition: Home Primary Insurance: [employer] ADV Discharge Planning Comments: CM RECEIVED REQUEST TO MEET WITH PT AND HER FAMILY IN ROOM. CM MET WITH PT AND HER SON, ROCKY STEELE, , IN ROOM TO DISCUSS DISCHARGE NEEDS AND PLANNING. MIRIAN VALENZUELA provided verbal consent to discuss current and ongoing needs with/in the presence of: ROCKY, HER SON. PT REPORTS SHE WILL NEED A WALKER FOR DISCHARGE HOME NEXT WEEK AND MAY NEED OXYGEN. THEY WANT TO USE [employer] AND IF NOT IN INSURANCE NETWORK, ANY COMPANY WILL DO. CHOICE LETTER SIGNED. FOR DISCHARGE, PT WILL NEED A WALKER AND ALSO OXYGEN TESTING TO DETERMINE HOME OXYGEN NEEDS. PT WANTS TO USE [employer] OR ANY IN NETWORK PROVIDER WITH HER INSURANCE. CM TO CONTINUE TO FOLLOW AND ASSIST NEEDED. Swimming Pool Service Technician: Manny Perez DCP- Discharge Planning Updated by [id number]: Ruby Penn on 07/30/18 5:[address] MET WITH PATIENT AND HER DAUGHTER IN LAW, SHRUTHI AT THE BEDSIDE. THE PATIENT GAVE PERMISSION TO SPEAK WITH SHRUTHI BEING PRESENT. PATIENT IS ALERT AND ORIENTED X4. PATIENT LIVES IN HER OWN HOME AND HER DAUGHTER, LEILA, LIVES WITH HER. SHE HAS GOOD FAMILY SUPPORT. WILL HAVE TRANSPORTATION TO HOME. SHE HAS ONE STEP TO ENTER HER HOME FROM THE FRONT DOOR. NO STEPS OR STAIRS FROM THE SIDE DOOR. 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 FALLING MORE FREQUENTLY AND STATES HER BALANCE IS POOR. SHE DOES NOT USE ANY DEVICE TO AMBULATE. DENIES ANY DME. PHYSICAL THERAPY EVAL MAYBE HELPFUL. PCP- DR CINDI JIMENEZ. PULOMONARY CONSULT- DR MARTINEZ- PATIENT IS WEARING NASAL O2 BUT DOES NOT HAVE OXYGEN AT HOME. SHE IS ON 2/L WITH O2 SAT OF 96% AT REST. PATIENT AND DAUGHTER IN LAW DENIES ANY NEEDS FOR SERVICES AT HOME AT THIS TIME. CM EXPLAINED CASE MANAGEMENT CAN ASSIST IF THEY CHANGE THEIR MINDS. WILL FOLLOW TO ASSIST IS APPROPRIATE. DCPIA - Discharge Planning Initial Assessment Updated by [email or web address]: Ruby Penn on 07/30/18 6:07 pm * Is the patient Alert and Oriented? Yes * How many steps to enter\exit or inside your home? ONE * PCP DR CINDI ENNIS IN [place] * Pharmacy [facility]. * Preadmission Environment Home with Family * ADLs Independent * Equipment None * Other Equipment DENIES DME * List name and contact numbers for known caregivers / representatives who currently or will assist patient after discharge: PABLITO BARRY [phone] DAUGHTER * Verbal permission to speak to the caregivers and representatives has been obtained from the patient. Yes * Community resources currently utilized None * Please name any agencies selected above. N/A * Additional services required to return to the preadmission environment? No * Can the patient safely return to the preadmission environment? Yes * Has this patient been hospitalized within the prior 30 days at any hospital? No Coverage Notice Reviewer: [id number] - Manny Perez Notice Issued Date-Time: 08/07/2018 16:20 Notice Type: Patient Choice Letter Notice Delivered To: Patient Relationship to Patient: Automatic Thread Winder Name: Delivery Method: HAND - Hand Delivered Negrita Days: Prior Verbal Notification: Recipient Understood Notice: Yes Recipient Signature: Yes Med Rec Note Co-signed by Attending: Coverage Notice Comment: DAVID Last DP export: 07/30/18 5:20 pm Patient Name: MIRIAN VALENZUELA Page [phone] at 1712 All edits/amendments must be made on the electronic document DICTATION DATE: 08/07/181710 TOILET AND LAUNDRY SOAP SUPERVISOR: TAYLOR 08/07/181710 RPT#: [id number] DC DATE: STATUS: ADM IN [facility] [address] [place] [address] END OF REPORT
--- NOTE | 2018-08-07 18:31 | NUR ---
WORK ORDER PLACED TO REPAIR ROOM THERMOSTAT
--- NOTE | 2018-08-07 19:35 | NUR ---
RECEIVED REPORT, WILL ASSUME CARE OF PT, PT IS SLEEPING, FAMILY AT BEDSIDE, BED IS LOW, SRX2, CALL LIGHT IN REACH, WILL CONTINUE PLAN OF CARE
[2018-08-07 20:00] VITALS: BP 137/51
--- NOTE | 2018-08-07 21:23 | NUR ---
PM MEDS GIVEN, PROVIDED FRESH ICE WATER, DAUGHTER IN ROOM, CALL LIGHT IN REACH, WILL CONTINUE PLAN OF CARE
[2018-08-08] VITALS: BP 115/63
--- NOTE | 2018-08-08 02:55 | NUR ---
I have reviewed this patient and I concur with the Shift Assessment completed by the Licensed Practical Nurse today this shift.
[2018-08-08 04:00] VITALS: BP 133/56
[2018-08-08 05:53] LABS: BASOPHILS 0.1 % (0-2); EOSINOPHILS 0 % (0-7); HEMATOCRIT 33.1 % (36.0-48.0); HEMOGLOBIN 10.2 g/dL (12-16); IMMATURE GRANULOCYTES 0.9 % (0-5); LYMPHOCYTES 5.3 % (15-50); MCH 28.3 pg (26.0-34.0); MCHC 30.8 g/dL (31.0-37.0); MCV 91.7 fL (80.0-100.0); MEAN PLATELET VOLUME 12.1 fL (7.4-10.4); MONOCYTES 7.2 % (2-11); NEUTROPHILS 86.5 % (40-80); PLATELET COUNT 245 10x3/uL (130-400); RBC 3.61 10x6/uL (4.00-5.40); WBC 16.3 10x3/uL (4.8-10.8)
[2018-08-08 06:13] LABS: ALBUMIN 1.7 g/dL (3.4-5.0); BILIRUBIN - TOTAL 0.3 mg/dL (0.2-1.3); CALCIUM 8.7 mg/dL (8.5-10.1); CARBON DIOXIDE 36.8 mmol/L (21.0-32.0); CREATININE - SERUM 0.8 mg/dL (0.6-1.3); POTASSIUM - SERUM 3.8 mmol/L (3.5-5.1); PROTEIN - SERUM 5.3 g/dL (6.4-8.2)
[2018-08-08 08:00] VITALS: BP 121/51
--- NOTE | 2018-08-08 08:34 | NUR ---
PT RESTING IN BED, SHIFT ASSESSMENT PERFORMED. DAUGHTER AT BESIDE ASSITING WITH TRAY SET-UP. DENIES ANY NEEDS AT THIS TIME. WILL CONT TO FOLLOW POC
[2018-08-08 12:00] VITALS: BP 142/51
--- NOTE | 2018-08-08 12:45 | NUR ---
PT RESTING IN BED, FAMILY AT BEDSIDE. DENIES NEEDS AT THIS TIME. WILL CONT TO FOLLOW POC
[2018-08-08 16:30] VITALS: BP 136/62
--- NOTE | 2018-08-08 17:56 | NUR ---
PT PIV TO LEFT AC INFILTRATED, REMOVED WITH CATHETER TIP INTACT. 22G PIV INSERTED TO PT LEFT WRIST X1 ATTEMPT. PT TOLERATED WELL. WILL CONT TO FOLLO POC
--- NOTE | 2018-08-08 20:06 | NUR ---
EVENING ROUNDS COMPLETED. REPORT RECEIVED. PT SITTING UP IN BED WITH EYES OPEN, RR EVEN AND UNLABORED. NO S/S OF DISTRESS NOTED. INTRODUCED SELF TO PT. PT ANSWERS QUESTIONS APPROPRIATELY AND REQUESTS AN ANALGESIC FOR COMPLAINTS OF PAIN IN HER BACK. PT STATES THE PAIN IS A 7 ON A SCALE OF 0-10. REPLACED PT ARM BAND AND APPLIED TO RIGHT WRIST. PT DENIES FURTHER NEEDS AT THIS TIME. CALL LIGHT IN REACH.
[2018-08-08 20:18] VITALS: BP 123/50
[2018-08-09] VITALS (7 sets, daily range): BP systolic 110–154; BP diastolic 45–69
--- NOTE | 2018-08-09 00:20 | NUR ---
I have reviewed this patient and I concur with the Shift Assessment completed by the Licensed Practical Nurse today this shift.
--- NOTE | 2018-08-09 00:33 | NUR ---
ORDERED 2100 BETAPACE HELD, PT HEART RATE RUNNING 48-52 ON TELEMETRY. APICAL PULSE RATE OF 53.
[2018-08-09 05:47] LABS: BASOPHILS 0 % (0-2); EOSINOPHILS 0.2 % (0-7); HEMATOCRIT 33.7 % (36.0-48.0); HEMOGLOBIN 10.4 g/dL (12-16); IMMATURE GRANULOCYTES 0.9 % (0-5); LYMPHOCYTES 8.5 % (15-50); MCH 28.5 pg (26.0-34.0); MCHC 30.9 g/dL (31.0-37.0); MCV 92.3 fL (80.0-100.0); MEAN PLATELET VOLUME 11.9 fL (7.4-10.4); MONOCYTES 6.6 % (2-11); NEUTROPHILS 83.8 % (40-80); PLATELET COUNT 243 10x3/uL (130-400); RBC 3.65 10x6/uL (4.00-5.40); WBC 15.8 10x3/uL (4.8-10.8)
[2018-08-09 06:53] LABS: ALBUMIN 1.8 g/dL (3.4-5.0); ANION GAP 8.5 mmol/L (8-16); BILIRUBIN - TOTAL 0.27 mg/dL (0.2-1.3); CALCIUM 8.6 mg/dL (8.5-10.1); CARBON DIOXIDE 37.6 mmol/L (21.0-32.0); CREATININE - SERUM 0.9 mg/dL (0.6-1.3); MAGNESIUM - SERUM 2.3 mg/dL (1.8-2.4); PHOSPHOROUS 2.8 mg/dL (2.5-4.9); POTASSIUM - SERUM 4.1 mmol/L (3.5-5.1)
--- NOTE | 2018-08-09 07:05 | NUR ---
PT IS ASLEEP, FAMILY AT BEDSIDE ROUSED TO NOISE. DID NOT FURTHER DISTURB AT THIS TIME. EVERYTHING IS IN ORDER. NO SIGNS OF DISTRESS NOTED. CL IN REACH,SR X2
--- NOTE | 2018-08-09 14:24 | NUR ---
PT HAS BEEN DARLENE ALL DAY. NO COMPLAINTS/CONCERNS VIOCED. WANTS TO KNOW IF SHE'LL BE GOING HOME WITH OXYGEN AND HOW ITLL BE HANDELED. I EXPLAINED THE PROCESS THOURAGHLY. FAMILY AT BEDSIDE. CL IN REACH, SRX2.
--- NOTE | 2018-08-09 15:06 | NUR ---
I have reviewed this patient and I concur with the Shift Assessment completed by the Licensed Practical Nurse today this shift.
--- NOTE | 2018-08-09 19:50 | NUR ---
EVENING ROUNDS COMPLETED. REPORT RECEIVED. PT SITTING UP IN BED WITH EYES OPEN, RR EVEN AND UNLABORED. BED IN LOW POSITION. NO S/S OF DISTRESS. FAMILY AT BEDSIDE. INTRODUCED SELF TO PT. PT DENIES FURTHER NEEDS AT THIS TIME. 70 NORMAL SINUS ON TELEMETRY. CALL LIGHT IN REACH. WILL CTM.
--- NOTE | 2018-08-10 01:44 | NUR ---
I have reviewed this patient and I concur with the Shift Assessment completed by the Licensed Practical Nurse today this shift.
[2018-08-10 03:45] VITALS: BP 122/41
[2018-08-10 06:27] LABS: BASOPHILS 0.1 % (0-2); EOSINOPHILS 0.2 % (0-7); HEMATOCRIT 34.3 % (36.0-48.0); HEMOGLOBIN 10.3 g/dL (12-16); IMMATURE GRANULOCYTES 0.9 % (0-5); MCH 27.9 pg (26.0-34.0); MEAN PLATELET VOLUME 11.9 fL (7.4-10.4); MONOCYTES 7.7 % (2-11); NEUTROPHILS 83.1 % (40-80); PLATELET COUNT 234 10x3/uL (130-400); RBC 3.69 10x6/uL (4.00-5.40); RDW 14.2 % (11.5-14.5)
[2018-08-10 06:34] LABS: ALBUMIN 1.7 g/dL (3.4-5.0); ANION GAP 0.3 mmol/L (8-16); BILIRUBIN - TOTAL 0.26 mg/dL (0.2-1.3); CALCIUM 8.9 mg/dL (8.5-10.1); CREATININE - SERUM 0.8 mg/dL (0.6-1.3); MAGNESIUM - SERUM 2.4 mg/dL (1.8-2.4); PHOSPHOROUS 2.5 mg/dL (2.5-4.9); POTASSIUM - SERUM 3.8 mmol/L (3.5-5.1); PROTEIN - SERUM 5.3 g/dL (6.4-8.2)
--- NOTE | 2018-08-10 06:40 | NUR ---
PT SITTING UP IN BED WITH EYES OPEN, RR EVEN AND UNLABORED. 53 SINUS LINO ON TELEMETRY. CALL LIGHT IN REACH. WILL CTM.
[2018-08-10 06:45] LABS: CARBON DIOXIDE 40.5 mmol/L (21.0-32.0)
--- NOTE | 2018-08-10 07:32 | NUR ---
ALERT AND ORIENTED X 4. LUNGS DIMINISHED BILATERALLY. O2 NOTED AT 4L NC. HEART SOUNDS S1 AND S2 HEARD IN ALL EUBANKS. BOWEL SOUNDS ACTIVE X 4. SKIN INTACT WITHOUT REDNESS. IV TO LEFT WRIST PATENT WITHOUT REDNESS. DENIES PAIN. DENIES NEEDS. FAMILY MEMBER AT BEDSIDE. CALL NEW AND PERSONAL ITEMS IN REACH. BED LOW. WILL CONTINUE TO MONITOR.
[2018-08-10 07:55] VITALS: BP 140/46
--- NOTE | 2018-08-10 09:12 | NUR ---
MEDICATIONS GIVEN WITHOUT DIFFICULTY. MINIMAL AMOUNT OF BLEEDING NOTED AT IV SITE. CLEANED AND FLUSHED. FLUSHED WITHOUT DIFFICULTY. DENIES PAIN AT SITE. NO SWELLING AT SITE. WILL CONTINUE TO MONITOR. REQUESTED ENSURE. ENSURE BROUGHT TO PATIENT. GIVEN PRN VALIUM PER REQUEST. DENIES FURTHER NEEDS. FAMILY MEMBER AT BEDSIDE.
--- NOTE | 2018-08-10 11:02 | NUR ---
RESTING IN BED. FAMILY MEMBER AT BEDSIDE. DENIES NEEDS.
[2018-08-10 12:06] VITALS: BP 112/50
--- NOTE | 2018-08-10 12:16 | NUR ---
SITTING IN BED EATING LUNCH. DENIES NEEDS.
--- NOTE | 2018-08-10 13:44 | MORECARE ---
CASE MANAGEMENT DISCHARGE SUMMARY PATIENT: MIRIAN VALENZUELA UNIT: [id number] ADM DATE: 07/30/18 AGE: 83 : 35 SEX: F ROOM/BED: D.5756 AUTHOR: SURENDRA,DOC PHYSICIAN: REFERRING PHYSICIAN: JING ZHONG MD DATE OF SERVICE: 08/10/18 Discharge Plan Patient Name: MIRIAN VALENZUELA Facility: [facility]:[place] : 1935 Planned Disposition: Home with Home Health Anticipated Discharge Date: 08/10/18 Discharge Date: Expected LOS: 11 Initial Reviewer: [id number] Initial Review Date: 07/30/2018 Generated: 08/10/18 2:43 pm Comments DCP- Discharge Planning Updated by [id number]: Manny Perez on 08/07/18 4:[address] Patient Name: MIRIAN VALENZUELA Admission Status: ER Accout number: [id number] Admission Date: 07-30-2018 : 1935 Admission Diagnosis:SHORTNESS OF BREATH Attending: JING ZHONG Current LOS: 8 Anticipated DC Date: Planned Disposition: Home Primary Insurance: [employer] ADV Discharge Planning Comments: CM RECEIVED REQUEST TO MEET WITH PT AND HER FAMILY IN ROOM. CM MET WITH PT AND HER SON, ROCKY STEELE, , IN ROOM TO DISCUSS DISCHARGE NEEDS AND PLANNING. MIRIAN VALENUZELA provided verbal consent to discuss current and ongoing needs with/in the presence of: ROCKY, HER SON. PT REPORTS SHE WILL NEED A WALKER FOR DISCHARGE HOME NEXT WEEK AND MAY NEED OXYGEN. THEY WANT TO USE [employer] AND IF NOT IN INSURANCE NETWORK, ANY COMPANY WILL DO. CHOICE LETTER SIGNED. FOR DISCHARGE, PT WILL NEED A WALKER AND ALSO OXYGEN TESTING TO DETERMINE HOME OXYGEN NEEDS. PT WANTS TO USE [employer] OR ANY IN NETWORK PROVIDER WITH HER INSURANCE. CM TO CONTINUE TO FOLLOW AND ASSIST NEEDED. Senior Specialist: Manny Perez DCP- Discharge Planning Updated by [id number]: Ruby Penn on 07/30/18 5:[address] MET WITH PATIENT AND HER DAUGHTER IN LAW, SHRUTHI AT THE BEDSIDE. THE PATIENT GAVE PERMISSION TO SPEAK WITH SHRUTHI BEING PRESENT. PATIENT IS ALERT AND ORIENTED X4. PATIENT LIVES IN HER OWN HOME AND HER DAUGHTER, LEILA, LIVES WITH HER. SHE HAS GOOD FAMILY SUPPORT. WILL HAVE TRANSPORTATION TO HOME. SHE HAS ONE STEP TO ENTER HER HOME FROM THE FRONT DOOR. NO STEPS OR STAIRS FROM THE SIDE DOOR. 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 FALLING MORE FREQUENTLY AND STATES HER BALANCE IS POOR. SHE DOES NOT USE ANY DEVICE TO AMBULATE. DENIES ANY DME. PHYSICAL THERAPY EVAL MAYBE HELPFUL. PCP- DR CINID JIMENEZ. PULOMONARY CONSULT- DR MARTINEZ- PATIENT IS WEARING NASAL O2 BUT DOES NOT HAVE OXYGEN AT HOME. SHE IS ON 2/L WITH O2 SAT OF 96% AT REST. PATIENT AND DAUGHTER IN LAW DENIES ANY NEEDS FOR SERVICES AT HOME AT THIS TIME. CM EXPLAINED CASE MANAGEMENT CAN ASSIST IF THEY CHANGE THEIR MINDS. WILL FOLLOW TO ASSIST IS APPROPRIATE. DCPIA - Discharge Planning Initial Assessment Updated by [id number]: Ruby Penn on 07/30/18 6:07 pm * Is the patient Alert and Oriented? Yes * How many steps to enter\exit or inside your home? ONE * PCP DR CINDI ENNIS IN [place] * Pharmacy [facility] [address] OFF [facility]. * Preadmission Environment Home with Family * ADLs Independent * Equipment None * Other Equipment DENIES DME * List name and contact numbers for known caregivers / representatives who currently or will assist patient after discharge: PABLITO BARRY [phone]- DAUGHTER * Verbal permission to speak to the caregivers and representatives has been obtained from the patient. Yes * Community resources currently utilized None * Please name any agencies selected above. N/A * Additional services required to return to the preadmission environment? No * Can the patient safely return to the preadmission environment? Yes * Has this patient been hospitalized within the prior 30 days at any hospital? No Coverage Notice Reviewer: [id number] Fernando Perez Notice Issued Date-Time: 08/07/2018 16:20 Notice Type: Patient Choice Letter Notice Delivered To: Patient Relationship to Patient: Retail Pricing Coordinator Name: Delivery Method: HAND - Hand Delivered Negrita Days: Prior Verbal Notification: Recipient Understood Notice: Yes Recipient Signature: Yes Med Rec Note Co-signed by Attending: Coverage Notice Comment: DAVID Reviewer: [id number] Fernando Perez Notice Issued Date-Time: 08/10/2018 13:00 Notice Type: IM Discharge Notice Notice Delivered To: Patient Relationship to Patient: Retail Pricing Coordinator Name: Delivery Method: HAND - Hand Delivered Negrita Days: Prior Verbal Notification: Recipient Understood Notice: Yes Recipient Signature: Yes Med Rec Note Co-signed by Attending: Coverage Notice Comment: Last DP export: 08/07/18 4:11 p Patient Name: MIRIAN VALENZUELA Page [phone] at 1344 All edits/amendments must be made on the electronic document DICTATION DATE: 08/10/18 1343 CHALK MACHINE OPERATOR: TAYLOR 08/10/18 1343 RPT#: [id number] DC DATE: STATUS: ADM IN [facility] [address] [place] [address] END OF REPORT
--- NOTE | 2018-08-10 13:54 | MORECARE ---
CASE MANAGEMENT DISCHARGE SUMMARY PATIENT: MIRIAN VALENZUELA UNIT: [id number] ADM DATE: 07/30/18 AGE: 83 : 35 SEX: F ROOM/BED: D.6266 AUTHOR: SURENDRA,DOC PHYSICIAN: REFERRING PHYSICIAN: JING ZHONG MD DATE OF SERVICE: 08/10/18 Discharge Plan Patient Name: MIRIAN VALENZUELA Facility: [facility]:[place] : 1935 Planned Disposition: Home with Home Health Anticipated Discharge Date: 08/10/18 Discharge Date: Expected LOS: 11 Initial Reviewer: [id number] Initial Review Date: 07/30/2018 Generated: 08/10/18 2:54 pm Comments DCP- Discharge Planning Updated by [email or web address]: Manny Perez on 08/07/18 4:[address] Patient Name: MIRIAN VALENZUELA Admission Status: ER Accout number: [id number] Admission Date: 07-30-2018 : 1935 Admission Diagnosis:SHORTNESS OF BREATH Attending: JING ZHONG Current LOS: 8 Anticipated DC Date: Planned Disposition: Home Primary Insurance: [employer] ADV Discharge Planning Comments: CM RECEIVED REQUEST TO MEET WITH PT AND HER FAMILY IN ROOM. CM MET WITH PT AND HER SON, ROCKY STEELE, , IN ROOM TO DISCUSS DISCHARGE NEEDS AND PLANNING. MIRIAN VALENZUELA provided verbal consent to discuss current and ongoing needs with/in the presence of: ROCKY, HER SON. PT REPORTS SHE WILL NEED A WALKER FOR DISCHARGE HOME NEXT WEEK AND MAY NEED OXYGEN. THEY WANT TO USE [facility] AND IF NOT IN INSURANCE NETWORK, ANY COMPANY WILL DO. CHOICE LETTER SIGNED. FOR DISCHARGE, PT WILL NEED A WALKER AND ALSO OXYGEN TESTING TO DETERMINE HOME OXYGEN NEEDS. PT WANTS TO USE [employer] OR ANY IN NETWORK PROVIDER WITH HER INSURANCE. CM TO CONTINUE TO FOLLOW AND ASSIST NEEDED. Occupancy Specialist: Manny Perez DCP- Discharge Planning Updated by [id number]: Ruby Penn on 07/30/18 5:[address] MET WITH PATIENT AND HER DAUGHTER IN LAW, SHRUTHI AT THE BEDSIDE. THE PATIENT GAVE PERMISSION TO SPEAK WITH SHRUTHI BEING PRESENT. PATIENT IS ALERT AND ORIENTED X4. PATIENT LIVES IN HER OWN HOME AND HER DAUGHTER, LEILA, LIVES WITH HER. SHE HAS GOOD FAMILY SUPPORT. WILL HAVE TRANSPORTATION TO HOME. SHE HAS ONE STEP TO ENTER HER HOME FROM THE FRONT DOOR. NO STEPS OR STAIRS FROM THE SIDE DOOR. 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 FALLING MORE FREQUENTLY AND STATES HER BALANCE IS POOR. SHE DOES NOT USE ANY DEVICE TO AMBULATE. DENIES ANY DME. PHYSICAL THERAPY EVAL MAYBE HELPFUL. PCP- DR CINDI JIMENEZ. PULOMONARY CONSULT- DR MARTINEZ- PATIENT IS WEARING NASAL O2 BUT DOES NOT HAVE OXYGEN AT HOME. SHE IS ON 2/L WITH O2 SAT OF 96% AT REST. PATIENT AND DAUGHTER IN LAW DENIES ANY NEEDS FOR SERVICES AT HOME AT THIS TIME. CM EXPLAINED CASE MANAGEMENT CAN ASSIST IF THEY CHANGE THEIR MINDS. WILL FOLLOW TO ASSIST IS APPROPRIATE. DCPIA - Discharge Planning Initial Assessment Updated by [id number]: Ruby Penn on 07/30/18 6:07 pm * Is the patient Alert and Oriented? Yes * How many steps to enter\exit or inside your home? ONE * PCP DR CINDI ENNIS IN [place] * Pharmacy [facility] [address] [facility]. * Preadmission Environment Home with Family * ADLs Independent * Equipment None * Other Equipment DENIES DME * List name and contact numbers for known caregivers / representatives who currently or will assist patient after discharge: PABLITO BARRY [phone]- DAUGHTER * Verbal permission to speak to the caregivers and representatives has been obtained from the patient. Yes * Community resources currently utilized None * Please name any agencies selected above. N/A * Additional services required to return to the preadmission environment? No * Can the patient safely return to the preadmission environment? Yes * Has this patient been hospitalized within the prior 30 days at any hospital? No External Providers External Provider: [facility] Next Contact Date: 08/10/2018 Service Request Date: Service Type: Resolution: Reviewer: Comments: [facility] Next Contact Date: 08/10/2018 Service Request Date: Service Type: Resolution: Reviewer: Comments: Coverage Notice Reviewer: [id number] Fernando Perez Notice Issued Date-Time: 08/07/2018 16:20 Notice Type: Patient Choice Letter Notice Delivered To: Patient Relationship to Patient: High School Counselor Name: Delivery Method: HAND - Hand Delivered Negrita Days: Prior Verbal Notification: Recipient Understood Notice: Yes Recipient Signature: Yes Med Rec Note Co-signed by Attending: Coverage Notice Comment: DAVID Reviewer: [id number] Fernando Perez Notice Issued Date-Time: 08/10/2018 13:00 Notice Type: IM Discharge Notice Notice Delivered To: Patient Relationship to Patient: High School Counselor Name: Delivery Method: HAND - Hand Delivered Negrita Days: Prior Verbal Notification: Recipient Understood Notice: Yes Recipient Signature: Yes Med Rec Note Co-signed by Attending: Coverage Notice Comment: Reviewer: [id number] Fernando Perez Notice Issued Date-Time: 08/10/2018 13:00 Notice Type: Patient Choice Letter Notice Delivered To: Patient Relationship to Patient: High School Counselor Name: Delivery Method: HAND - Hand Delivered Negrita Days: Prior Verbal Notification: Recipient Understood Notice: Yes Recipient Signature: Yes Med Rec Note Co-signed by Attending: Coverage Notice Comment: HOME HEALTH IN INSURANCE NETWORK Last DP export: 08/10/18 12:43 p Patient Name: MIRIAN VALENZUELA Page [phone] at 1354 All edits/amendments must be made on the electronic document DICTATION DATE: 08/10/18 135 TRAINING AND DEVELOPMENT HEAD: TAYLOR 08/10/18 1354 RPT#: [id number] DC DATE: STATUS: ADM IN [facility] [address] [place] [address] END OF REPORT
--- NOTE | 2018-08-10 14:01 | NUR ---
RESTING IN BED. DENIES NEEDS.
--- NOTE | 2018-08-10 14:38 | MORECARE ---
CASE MANAGEMENT DISCHARGE SUMMARY PATIENT: MIRIAN VALENZUELA UNIT: [id number] ADM DATE: 07/30/18 AGE: 83 : 35 SEX: F ROOM/BED: D.7364 AUTHOR: SURENDRA,DOC PHYSICIAN: REFERRING PHYSICIAN: JING ZHONG MD DATE OF SERVICE: 08/10/18 Discharge Plan Patient Name: MIRIAN VALENZUELA Facility: [facility]:[place] : 1935 Planned Disposition: Home with Home Health Anticipated Discharge Date: 08/10/18 Discharge Date: Expected LOS: 11 Initial Reviewer: [id number] Initial Review Date: 07/30/2018 Generated: 08/10/18 3:38 pm Comments DCP- Discharge Planning Updated by [id number]: Manny Perez on 08/10/18 1:[address] Patient Name: MIRIAN VALENZUELA Encounter No: [id number] : 1935 Primary Insurance: [employer] MEDICARE ADV Anticipated DC Date: 08-10-2018 Planned Disposition: Home with Home Health External Planned Provider: [facility] DCP follow-up note: CM RECEIVED HOME HEALTH ORDER, NEBULIZER ORDER AND WALKER ORDER. CM MET WITH PT IN ROOM. PT WOULD LIKE TO USE [facility] PREVIOUSLY DISCUSSED AND PT HAS ALREADY SIGNED CONSENT FORM. PT REPORTS SHE MAY NEED OXYGEN ALSO. CM WAITING OXYGEN TESTING. PT DOES WANT HOME HEALTH TO GO HOME, PROVIDER LISTING GIVEN, PT SIGNED CONSENT FOR ANY PROVIDER IN HER INSURANCE NETWORK. IMPORTANT MESSAGE FROM MEDICARE PROVIDED AND EXPLAINED. PT'S DAUGHTER ARRIVED, ABOVE EXPLAINED TO HER AT PT'S REQUEST. PT AND DAUGHTER ARE IN AGREEMENT WITH GOING HOME WITH HOME HEALTH. PT DECLINES SHELTER FACILITY PLACEMENT. CM CALLED [facility], , SPOKE TO MADAN, REFERRAL PROVIDED, PT PLACED ON SCHEDULE FOR TOMORROW. CM FAXED REFERRAL TO [facility] AT [phone]. CM CALLED [facility], [phone], SPOKE TO KATHY AND PROVIDED REFERRAL INFORMATION. CM FAXED REFERRAL TO [facility], . KATHY ADVISED THEY WILL DELIVER NEBULIZER TO HOSPITAL TODAY. CM WAITING ON OXYGEN TESTING TO DETERMINE NEED FOR HOME AND PORTABLE OXYGEN. FAX DISCHARGE INFORMATION TO [facility] AT [phone]. Manny Perez, CASE MANAGEMENT DCP- Discharge Planning Updated by [id number]: Manny Perez on 08/07/18 4:[address] Patient Name: MIRIAN VALENZUELA Admission Status: ER Accout number: [id number] Admission Date: 07-30-2018 : 1935 Admission Diagnosis:SHORTNESS OF BREATH Attending: JING ZHONG Current LOS: 8 Anticipated DC Date: Planned Disposition: Home Primary Insurance: [employer] MEDICARE ADV Discharge Planning Comments: CM RECEIVED REQUEST TO MEET WITH PT AND HER FAMILY IN ROOM. CM MET WITH PT AND HER SON, ROCKY STEELE, , IN ROOM TO DISCUSS DISCHARGE NEEDS AND PLANNING. MIRIAN VALENZUELA provided verbal consent to discuss current and ongoing needs with/in the presence of: ROCKY, HER SON. PT REPORTS SHE WILL NEED A WALKER FOR DISCHARGE HOME NEXT WEEK AND MAY NEED OXYGEN. THEY WANT TO USE [facility] AND IF NOT IN INSURANCE NETWORK, ANY COMPANY WILL DO. CHOICE LETTER SIGNED. FOR DISCHARGE, PT WILL NEED A WALKER AND ALSO OXYGEN TESTING TO DETERMINE HOME OXYGEN NEEDS. PT WANTS TO USE [facility] OR ANY IN NETWORK PROVIDER WITH HER INSURANCE. CM TO CONTINUE TO FOLLOW AND ASSIST NEEDED. Metal Engineering Process Worker: Manny Perez DCP- Discharge Planning Updated by [id number]: Ruby Penn on 07/30/18 5:[address] MET WITH PATIENT AND HER DAUGHTER IN LAW, SHRUTHI AT THE BEDSIDE. THE PATIENT GAVE PERMISSION TO SPEAK WITH SHRUTHI BEING PRESENT. PATIENT IS ALERT AND ORIENTED X4. PATIENT LIVES IN HER OWN HOME AND HER DAUGHTER, LEILA, LIVES WITH HER. SHE HAS GOOD FAMILY SUPPORT. WILL HAVE TRANSPORTATION TO HOME. SHE HAS ONE STEP TO ENTER HER HOME FROM THE FRONT DOOR. NO STEPS OR STAIRS FROM THE SIDE DOOR. 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 FALLING MORE FREQUENTLY AND STATES HER BALANCE IS POOR. SHE DOES NOT USE ANY DEVICE TO AMBULATE. DENIES ANY DME. PHYSICAL THERAPY EVAL MAYBE HELPFUL. PCP- DR CINDI JIMENEZ. PULOMONARY CONSULT- DR MARTINEZ- PATIENT IS WEARING NASAL O2 BUT DOES NOT HAVE OXYGEN AT HOME. SHE IS ON 2/L WITH O2 SAT OF 96% AT REST. PATIENT AND DAUGHTER IN LAW DENIES ANY NEEDS FOR SERVICES AT HOME AT THIS TIME. CM EXPLAINED CASE MANAGEMENT CAN ASSIST IF THEY CHANGE THEIR MINDS. WILL FOLLOW TO ASSIST IS APPROPRIATE. DCPIA - Discharge Planning Initial Assessment Updated by [id number]: Rbuy Penn on 07/30/18 6:07 pm * Is the patient Alert and Oriented? Yes * How many steps to enter\exit or inside your home? ONE * PCP DR CINDI ENNIS IN [place] * Pharmacy [facility] [address] [facility]. * Preadmission Environment Home with Family * ADLs Independent * Equipment None * Other Equipment DENIES DME * List name and contact numbers for known caregivers / representatives who currently or will assist patient after discharge: PABLITO Barrett-[phone]- DAUGHTER * Verbal permission to speak to the caregivers and representatives has been obtained from the patient. Yes * Community resources currently utilized None * Please name any agencies selected above. N/A * Additional services required to return to the preadmission environment? No * Can the patient safely return to the preadmission environment? Yes * Has this patient been hospitalized within the prior 30 days at any hospital? No Coverage Notice Reviewer: [id number] Perez Notice Issued Date-Time: 08/07/2018 16:20 Notice Type: Patient Choice Letter Notice Delivered To: Patient Relationship to Patient: Supervisor Plasma Name: Delivery Method: HAND - Hand Delivered Negrita Days: Prior Verbal Notification: Recipient Understood Notice: Yes Recipient Signature: Yes Med Rec Note Co-signed by Attending: Coverage Notice Comment: DAVID Reviewer: [id number] Perez Notice Issued Date-Time: 08/10/2018 13:00 Notice Type: IM Discharge Notice Notice Delivered To: Patient Relationship to Patient: Supervisor Plasma Name: Delivery Method: HAND - Hand Delivered Negrita Days: Prior Verbal Notification: Recipient Understood Notice: Yes Recipient Signature: Yes Med Rec Note Co-signed by Attending: Coverage Notice Comment: Reviewer: [id number] Fernando Perez Notice Issued Date-Time: 08/10/2018 13:00 Notice Type: Patient Choice Letter Notice Delivered To: Patient Relationship to Patient: Supervisor Plasma Name: Delivery Method: HAND - Hand Delivered Negrita Days: Prior Verbal Notification: Recipient Understood Notice: Yes Recipient Signature: Yes Med Rec Note Co-signed by Attending: Coverage Notice Comment: HOME HEALTH IN INSURANCE NETWORK Last DP export: 08/10/18 12:54 p Patient Name: MIRIAN VALENZUELA Page [phone] at 1438 All edits/amendments must be made on the electronic document DICTATION DATE: 08/10/181436 FIRST MATE: TAYLOR 08/10/181436 RPT#: [id number] DC DATE: STATUS: ADM IN [facility] [address] [place] [address] END OF REPORT
[2018-08-10] MEDS ORDERED: BETAPACE 80 MG80 MG PO (15:29)
[2018-08-10] MEDS ORDERED: CARDIZEM CD120 MG PO (15:30)
[2018-08-10] MEDS ORDERED: TESSALON PERLE100 MG PO (15:31)
[2018-08-10] MEDS ORDERED: MUCINEX DM ER1 EAC1 PO (15:32)
[2018-08-10] MEDS ORDERED: SINGULAIR10 MG PO (15:32)
[2018-08-10] MEDS ORDERED: IPRAT-ALBUT 0.5-3 ML UPD (15:35)
[2018-08-10] MEDS ORDERED: SYMBICORT 16010.2 GM INH (15:37)
[2018-08-10] MEDS ORDERED: PREDNISONE10 MG PO (15:43)
--- NOTE | 2018-08-10 15:57 | MORECARE ---
CASE MANAGEMENT DISCHARGE SUMMARY PATIENT: MIRIAN VALENZUELA UNIT: [id number] ADM DATE: 07/30/18 AGE: 83 : 35 SEX: F ROOM/BED: D.9835 AUTHOR: SURENDRA,DOC PHYSICIAN: REFERRING PHYSICIAN: JING ZHONG MD DATE OF SERVICE: 08/10/18 Discharge Plan Patient Name: MIRIAN VALENZUELA Facility: [facility]:[place] : 1935 Planned Disposition: Home with Home Health Anticipated Discharge Date: 08/10/18 Discharge Date: Expected LOS: 11 Initial Reviewer: [id number] Initial Review Date: 07/30/2018 Generated: 08/10/18 4:56 pm Comments DCP- Discharge Planning Updated by [id number]: Manny Perez on 08/10/18 1:[address] Patient Name: MIRIAN VALENZUELA Encounter No: [id number] : 1935 Primary Insurance: [employer] MEDICARE ADV Anticipated DC Date: 08-10-2018 Planned Disposition: Home with Home Health External Planned Provider: [facility] [facility] DCP follow-up note: CM RECEIVED HOME HEALTH ORDER, NEBULIZER ORDER AND WALKER ORDER. CM MET WITH PT IN ROOM. PT WOULD LIKE TO USE [employer] PREVIOUSLY DISCUSSED AND PT HAS ALREADY SIGNED CONSENT FORM. PT REPORTS SHE MAY NEED OXYGEN ALSO. CM WAITING OXYGEN TESTING. PT DOES WANT HOME HEALTH TO GO HOME, PROVIDER LISTING GIVEN, PT SIGNED CONSENT FOR ANY PROVIDER IN HER INSURANCE NETWORK. IMPORTANT MESSAGE FROM MEDICARE PROVIDED AND EXPLAINED. PT'S DAUGHTER ARRIVED, ABOVE EXPLAINED TO HER AT PT'S REQUEST. PT AND DAUGHTER ARE IN AGREEMENT WITH GOING HOME WITH HOME HEALTH. PT DECLINES SHELTER FACILITY PLACEMENT. CM CALLED [facility], , SPOKE TO MADAN, REFERRAL PROVIDED, PT PLACED ON SCHEDULE FOR TOMORROW. CM FAXED REFERRAL TO [facility] AT [phone]. CM CALLED [facility], [phone], SPOKE TO KATHY AND PROVIDED REFERRAL INFORMATION. CM FAXED REFERRAL TO [facility], . KATHY ADVISED THEY WILL DELIVER NEBULIZER TO HOSPITAL TODAY. CM WAITING ON OXYGEN TESTING TO DETERMINE NEED FOR HOME AND PORTABLE OXYGEN. FAX DISCHARGE INFORMATION TO [facility] AT [phone]. Manny Perez, CASE MANAGEMENT DCP- Discharge Planning Updated by [id number]: Manny Perez on 08/07/18 4:[address] Patient Name: MIRIAN VALENZUELA Admission Status: ER Accout number: [id number] Admission Date: 07-30-2018 : 1935 Admission Diagnosis:SHORTNESS OF BREATH Attending: JING ZHONG Current LOS: 8 Anticipated DC Date: Planned Disposition: Home Primary Insurance: [employer] MEDICARE ADV Discharge Planning Comments: CM RECEIVED REQUEST TO MEET WITH PT AND HER FAMILY IN ROOM. CM MET WITH PT AND HER SON, ROCKY STEELE, , IN ROOM TO DISCUSS DISCHARGE NEEDS AND PLANNING. MIRIAN VALENZUELA provided verbal consent to discuss current and ongoing needs with/in the presence of: ROCKY, HER SON. PT REPORTS SHE WILL NEED A WALKER FOR DISCHARGE HOME NEXT WEEK AND MAY NEED OXYGEN. THEY WANT TO USE [employer] AND IF NOT IN INSURANCE NETWORK, ANY COMPANY WILL DO. CHOICE LETTER SIGNED. FOR DISCHARGE, PT WILL NEED A WALKER AND ALSO OXYGEN TESTING TO DETERMINE HOME OXYGEN NEEDS. PT WANTS TO USE [employer] OR ANY IN NETWORK PROVIDER WITH HER INSURANCE. CM TO CONTINUE TO FOLLOW AND ASSIST NEEDED. Coating Machine Operator Helper: Manny Perez DCP- Discharge Planning Updated by [id number]: Ruby Penn on 07/30/18 5:[address] MET WITH PATIENT AND HER DAUGHTER IN LAW, SHRUTHI AT THE BEDSIDE. THE PATIENT GAVE PERMISSION TO SPEAK WITH SHRUTHI BEING PRESENT. PATIENT IS ALERT AND ORIENTED X4. PATIENT LIVES IN HER OWN HOME AND HER DAUGHTER, LEILA, LIVES WITH HER. SHE HAS GOOD FAMILY SUPPORT. WILL HAVE TRANSPORTATION TO HOME. SHE HAS ONE STEP TO ENTER HER HOME FROM THE FRONT DOOR. NO STEPS OR STAIRS FROM THE SIDE DOOR. 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 FALLING MORE FREQUENTLY AND STATES HER BALANCE IS POOR. SHE DOES NOT USE ANY DEVICE TO AMBULATE. DENIES ANY DME. PHYSICAL THERAPY EVAL MAYBE HELPFUL. PCP- DR CINDI JIMENEZ. PULOMONARY CONSULT- DR MARTINEZ- PATIENT IS WEARING NASAL O2 BUT DOES NOT HAVE OXYGEN AT HOME. SHE IS ON 2/L WITH O2 SAT OF 96% AT REST. PATIENT AND DAUGHTER IN LAW DENIES ANY NEEDS FOR SERVICES AT HOME AT THIS TIME. CM EXPLAINED CASE MANAGEMENT CAN ASSIST IF THEY CHANGE THEIR MINDS. WILL FOLLOW TO ASSIST IS APPROPRIATE. DCPIA - Discharge Planning Initial Assessment Updated by [id number]: Ruby Penn on 07/30/18 6:07 pm * Is the patient Alert and Oriented? Yes * How many steps to enter\exit or inside your home? ONE * PCP DR CINDI ENNIS IN [place] * Pharmacy [facility] [address] [facility]. * Preadmission Environment Home with Family * ADLs Independent * Equipment None * Other Equipment DENIES DME * List name and contact numbers for known caregivers / representatives who currently or will assist patient after discharge: PABLITO Barrett-[phone]- DAUGHTER * Verbal permission to speak to the caregivers and representatives has been obtained from the patient. Yes * Community resources currently utilized None * Please name any agencies selected above. N/A * Additional services required to return to the preadmission environment? No * Can the patient safely return to the preadmission environment? Yes * Has this patient been hospitalized within the prior 30 days at any hospital? No External Providers External Provider: [facility] Next Contact Date: 08/10/2018 Service Request Date: Service Type: Resolution: Reviewer: Comments: Coverage Notice Reviewer: [id number] Perez Notice Issued Date-Time: 08/07/2018 16:20 Notice Type: Patient Choice Letter Notice Delivered To: Patient Relationship to Patient: Technical Editor Name: Delivery Method: HAND - Hand Delivered Negrita Days: Prior Verbal Notification: Recipient Understood Notice: Yes Recipient Signature: Yes Med Rec Note Co-signed by Attending: Coverage Notice Comment: DAVID Reviewer: [id number] Perez Notice Issued Date-Time: 08/10/2018 13:00 Notice Type: IM Discharge Notice Notice Delivered To: Patient Relationship to Patient: Technical Editor Name: Delivery Method: HAND - Hand Delivered Negrita Days: Prior Verbal Notification: Recipient Understood Notice: Yes Recipient Signature: Yes Med Rec Note Co-signed by Attending: Coverage Notice Comment: Reviewer: [id number] Perez Notice Issued Date-Time: 08/10/2018 13:00 Notice Type: Patient Choice Letter Notice Delivered To: Patient Relationship to Patient: Technical Editor Name: Delivery Method: HAND - Hand Delivered Negrita Days: Prior Verbal Notification: Recipient Understood Notice: Yes Recipient Signature: Yes Med Rec Note Co-signed by Attending: Coverage Notice Comment: HOME HEALTH IN INSURANCE NETWORK Last DP export: 08/10/18 1:38 p Patient Name: MIRIAN VALENZUELA Page [id number] at 1557 All edits/amendments must be made on the electronic document DICTATION DATE: 08/10/181555 DIRECTOR FINANCIAL SERVICES: TAYLOR 08/10/181555 RPT#: [id number] DC DATE: STATUS: ADM IN [facility] [address] [place] [address] END OF REPORT
--- NOTE | 2018-08-10 16:05 | MORECARE ---
CASE MANAGEMENT DISCHARGE SUMMARY PATIENT: MIRIAN VALENZUELA UNIT: [id number] ADM DATE: 07/30/18 AGE: 83 : 35 SEX: F ROOM/BED: D.0304 AUTHOR: SURENDRA,DOC PHYSICIAN: REFERRING PHYSICIAN: JING ZHONG MD DATE OF SERVICE: 08/10/18 Discharge Plan Patient Name: MIRIAN VALENZUELA Facility: [facility]:[place] : 1935 Planned Disposition: Home with Home Health Anticipated Discharge Date: 08/10/18 Discharge Date: Expected LOS: 11 Initial Reviewer: [id number] Initial Review Date: 07/30/2018 Generated: 08/10/18 5:05 pm Comments DCP- Discharge Planning Updated by [id number]: Joanne Cooley on 08/10/18 3:[address] Patient Name: MIRIAN VALENZUELA Encounter No: [id number] : 1935 Primary Insurance: [employer] MEDICARE ADV Anticipated DC Date: 08-10-2018 Planned Disposition: Home with Home Health External Planned Provider: [facility] DCP follow-up note: CM RECEIVED HOME HEALTH ORDER, NEBULIZER ORDER AND WALKER ORDER. CM MET WITH PT IN ROOM. PT WOULD LIKE TO USE [employer] PREVIOUSLY DISCUSSED AND PT HAS ALREADY SIGNED CONSENT FORM. PT REPORTS SHE MAY NEED OXYGEN ALSO. CM WAITING OXYGEN TESTING. PT DOES WANT HOME HEALTH TO GO HOME, PROVIDER LISTING GIVEN, PT SIGNED CONSENT FOR ANY PROVIDER IN HER INSURANCE NETWORK. IMPORTANT MESSAGE FROM MEDICARE PROVIDED AND EXPLAINED. PT'S DAUGHTER ARRIVED, ABOVE EXPLAINED TO HER AT PT'S REQUEST. PT AND DAUGHTER ARE IN AGREEMENT WITH GOING HOME WITH HOME HEALTH. PT DECLINES [facility] FACILITY PLACEMENT. CM CALLED [facility], , SPOKE TO MADAN, REFERRAL PROVIDED, PT PLACED ON SCHEDULE FOR TOMORROW. CM FAXED REFERRAL TO [facility] AT [phone]. CM CALLED [facility], [phone], SPOKE TO KATHY AND PROVIDED REFERRAL INFORMATION. CM FAXED REFERRAL TO [employer], . KATHY ADVISED THEY WILL DELIVER NEBULIZER TO HOSPITAL TODAY. CM WAITING ON OXYGEN TESTING TO DETERMINE NEED FOR HOME AND PORTABLE OXYGEN. FAX DISCHARGE INFORMATION TO [facility] AT [phone]. Joanne Cooley, CASE MANAGEMENT Appended by Joanne Cooley on 08/10/2018 16:04 CDT: [facility] RECEIVED CALL FROM KATHY OF [facility] WHO INFORMED CM THEY ARE NOT [facility], REFERRED PT TO [facility]. CM SPOKE TO PT AND DAUGHTER IN ROOM, BOTH AGREED WITH [facility]. CHOICE SIGNED. CM CALLED [facility], , SPOKE TO FRACISCO WHO TOOK OXYGEN, NEBULIZER AND WALKER ORDER. CM FAXED ORDERS TO [facility] AT [phone]. [facility] TO ARRANGE PORTABLE OXYGEN TO HOPITAL ROOM AND HOME OXYGEN AND NEBULIZER FOR HOME DELIVERY AFTER PT ARRIVES HOME TODAY. PATIENT MAY REQUIRE PRIOR AUTHORIZATION FOR THE WALKER. JOANNE COOLEY, CAR REPAIRER PULLMAN DCP- Discharge Planning Updated by [id number]: Joanne Cooley on 08/07/18 4:[address] Patient Name: MIRIAN VALENZUELA Admission Status: ER Accout number: [id number] Admission Date: 07-30-2018 : 1935 Admission Diagnosis:SHORTNESS OF BREATH Attending: JING ZHONG Current LOS: 8 Anticipated DC Date: Planned Disposition: Home Primary Insurance: [facility] ADV Discharge Planning Comments: CM RECEIVED REQUEST TO MEET WITH PT AND HER FAMILY IN ROOM. CM MET WITH PT AND HER SON, ROCKY STEELE, , IN ROOM TO DISCUSS DISCHARGE NEEDS AND PLANNING. MIRIAN VALENZUELA provided verbal consent to discuss current and ongoing needs with/in the presence of: ROCKY, HER SON. PT REPORTS SHE WILL NEED A WALKER FOR DISCHARGE HOME NEXT WEEK AND MAY NEED OXYGEN. THEY WANT TO USE [employer] AND IF NOT IN INSURANCE NETWORK, ANY COMPANY WILL DO. CHOICE LETTER SIGNED. FOR DISCHARGE, PT WILL NEED A WALKER AND ALSO OXYGEN TESTING TO DETERMINE HOME OXYGEN NEEDS. PT WANTS TO USE [employer] OR ANY IN NETWORK PROVIDER WITH HER INSURANCE. CM TO CONTINUE TO FOLLOW AND ASSIST NEEDED. Precision Grinder External: Joanne Cooley DCP- Discharge Planning Updated by [id number]: Ruby Penn on 07/30/18 5:[address] MET WITH PATIENT AND HER DAUGHTER IN LAW, SHRUTHI AT THE BEDSIDE. THE PATIENT GAVE PERMISSION TO SPEAK WITH SHRUTHI BEING PRESENT. PATIENT IS ALERT AND ORIENTED X4. PATIENT LIVES IN HER OWN HOME AND HER DAUGHTER, LEILA, LIVES WITH HER. SHE HAS GOOD FAMILY SUPPORT. WILL HAVE TRANSPORTATION TO HOME. SHE HAS ONE STEP TO ENTER HER HOME FROM THE FRONT DOOR. NO STEPS OR STAIRS FROM THE SIDE DOOR. 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 FALLING MORE FREQUENTLY AND STATES HER BALANCE IS POOR. SHE DOES NOT USE ANY DEVICE TO AMBULATE. DENIES ANY DME. PHYSICAL THERAPY EVAL MAYBE HELPFUL. PCP- DR CINDI JIMENEZ. PULOMONARY CONSULT- DR MARTINEZ- PATIENT IS WEARING NASAL O2 BUT DOES NOT HAVE OXYGEN AT HOME. SHE IS ON 2/L WITH O2 SAT OF 96% AT REST. PATIENT AND DAUGHTER IN LAW DENIES ANY NEEDS FOR SERVICES AT HOME AT THIS TIME. CM EXPLAINED CASE MANAGEMENT CAN ASSIST IF THEY CHANGE THEIR MINDS. WILL FOLLOW TO ASSIST IS APPROPRIATE. DCPIA - Discharge Planning Initial Assessment Updated by [id number]: Ruby Penn on 07/30/18 6:07 pm * Is the patient Alert and Oriented? Yes * How many steps to enter\exit or inside your home? ONE * PCP DR CINDI ENNIS IN [place] * Pharmacy [facility] [address] [facility]. * Preadmission Environment Home with Family * ADLs Independent * Equipment None * Other Equipment DENIES DME * List name and contact numbers for known caregivers / representatives who currently or will assist patient after discharge: PABLITO BARRY [phone]- DAUGHTER * Verbal permission to speak to the caregivers and representatives has been obtained from the patient. Yes * Community resources currently utilized None * Please name any agencies selected above. N/A * Additional services required to return to the preadmission environment? No * Can the patient safely return to the preadmission environment? Yes * Has this patient been hospitalized within the prior 30 days at any hospital? No Coverage Notice Reviewer: [id number] Fernando Cooley Notice Issued Date-Time: 08/07/2018 16:20 Notice Type: Patient Choice Letter Notice Delivered To: Patient Relationship to Patient: Digital Marketing Intern Name: Delivery Method: HAND - Hand Delivered Negrita Days: Prior Verbal Notification: Recipient Understood Notice: Yes Recipient Signature: Yes Med Rec Note Co-signed by Attending: Coverage Notice Comment: DAVID Reviewer: [id number] Fernando Cooley Notice Issued Date-Time: 08/10/2018 13:00 Notice Type: IM Discharge Notice Notice Delivered To: Patient Relationship to Patient: Digital Marketing Intern Name: Delivery Method: HAND - Hand Delivered Negrita Days: Prior Verbal Notification: Recipient Understood Notice: Yes Recipient Signature: Yes Med Rec Note Co-signed by Attending: Coverage Notice Comment: Reviewer: [id number] Cooley Notice Issued Date-Time: 08/10/2018 13:00 Notice Type: Patient Choice Letter Notice Delivered To: Patient Relationship to Patient: Digital Marketing Intern Name: Delivery Method: HAND - Hand Delivered Negrita Days: Prior Verbal Notification: Recipient Understood Notice: Yes Recipient Signature: Yes Med Rec Note Co-signed by Attending: Coverage Notice Comment: HOME HEALTH IN INSURANCE NETWORK Reviewer: [id number] Cooley Notice Issued Date-Time: 08/10/2018 15:30 Notice Type: Patient Choice Letter Notice Delivered To: Patient Relationship to Patient: Digital Marketing Intern Name: Delivery Method: HAND - Hand Delivered Negrita Days: Prior Verbal Notification: Recipient Understood Notice: Yes Recipient Signature: Yes Med Rec Note Co-signed by Attending: Coverage Notice Comment: IRA NAYLOR export: 08/10/18 2:56 p Patient Name: MIRIAN VALENZUELA Page [id number] at 1605 All edits/amendments must be made on the electronic document DICTATION DATE: 08/10/181603 DOSIER OPERATOR: TAYLOR 08/10/181603 RPT#: [id number] DC DATE: STATUS: ADM IN [facility] [address] [place] [address] END OF REPORT
--- NOTE | 2018-08-10 17:12 | MORECARE ---
CASE MANAGEMENT DISCHARGE SUMMARY PATIENT: MIRIAN VALENZUELA UNIT: [id number] ADM DATE: 07/30/18 AGE: 83 : 35 SEX: F ROOM/BED: D.0569 AUTHOR: SURENDRA,DOC PHYSICIAN: REFERRING PHYSICIAN: JING HZONG MD DATE OF SERVICE: 08/10/18 Discharge Plan Patient Name: MIRIAN VALENZUELA Facility: [facility]:[place] : 1935 Planned Disposition: Home with Home Health Anticipated Discharge Date: 08/10/18 Discharge Date: Expected LOS: 11 Initial Reviewer: [id number] Initial Review Date: 07/30/2018 Generated: 08/10/18 6:11 pm Comments DCP- Discharge Planning Updated by [id number]: Joanne Cooley on 08/10/18 4:[address] Patient Name: MIRIAN VALENZUELA Encounter No: [id number] : 1935 Primary Insurance: [employer] MEDICARE ADV Anticipated DC Date: 08-10-2018 Planned Disposition: Home with Home Health External Planned Provider: [facility] DCP follow-up note: CM RECEIVED HOME HEALTH ORDER, NEBULIZER ORDER AND WALKER ORDER. CM MET WITH PT IN ROOM. PT WOULD LIKE TO USE [employer] PREVIOUSLY DISCUSSED AND PT HAS ALREADY SIGNED CONSENT FORM. PT REPORTS SHE MAY NEED OXYGEN ALSO. CM WAITING OXYGEN TESTING. PT DOES WANT HOME HEALTH TO GO HOME, PROVIDER LISTING GIVEN, PT SIGNED CONSENT FOR ANY PROVIDER IN HER INSURANCE NETWORK. IMPORTANT MESSAGE FROM MEDICARE PROVIDED AND EXPLAINED. PT'S DAUGHTER ARRIVED, ABOVE EXPLAINED TO HER AT PT'S REQUEST. PT AND DAUGHTER ARE IN AGREEMENT WITH GOING HOME WITH HOME HEALTH. PT DECLINES ALF FACILITY PLACEMENT. CM CALLED [facility], , SPOKE TO MADAN, REFERRAL PROVIDED, PT PLACED ON SCHEDULE FOR TOMORROW. CM FAXED REFERRAL TO [facility] AT [phone]. CM CALLED [facility] [facility], [phone], SPOKE TO KATHY AND PROVIDED REFERRAL INFORMATION. CM FAXED REFERRAL TO [employer], . KATHY ADVISED THEY WILL DELIVER NEBULIZER TO HOSPITAL TODAY. CM WAITING ON OXYGEN TESTING TO DETERMINE NEED FOR HOME AND PORTABLE OXYGEN. FAX DISCHARGE INFORMATION TO [facility] AT [phone]. Joanne Cooley, CASE MANAGEMENT Appended by Joanne Cooley on 08/10/2018 16:04 CDT: CM RECEIVED CALL FROM KATHY [facility] WHO INFORMED THEY ARE NOT ACCEPTING ANY NEW [facility] PATIENT AT THIS TIME, REFERRED PT TO [facility] CM SPOKE TO PT AND DAUGHTER IN ROOM, BOTH AGREED WITH [facility]. CHOICE SIGNED. CM CALLED [facility], , SPOKE TO FRACISCO WHO TOOK OXYGEN, NEBULIZER AND WALKER ORDER. CM FAXED ORDERS TO [facility] AT [phone]. [facility] TO ARRANGE PORTABLE OXYGEN TO HOPITAL ROOM AND HOME OXYGEN AND NEBULIZER FOR HOME DELIVERY AFTER PT ARRIVES HOME TODAY. PATIENT MAY REQUIRE PRIOR AUTHORIZATION FOR THE WALKER. JOANNE COOLEY RESHIPPING CLERK Appended by Joanne Cooley on 08/10/2018 17:09 CDT: [facility]MAN FAXED DISCHARGE INFORMATION TO [facility], . FAUSTINO GOLDBERG MANAGEMENT DCP- Discharge Planning Updated by [id number]: Joanne Cooley on 08/07/18 4:[address] Patient Name: MIRIAN VALENZUELA Admission Status: ER Accout number: [id number] Admission Date: 07-30-2018 : 1935 Admission Diagnosis:SHORTNESS OF BREATH Attending: JING ZHONG Current LOS: 8 Anticipated DC Date: Planned Disposition: Home Primary Insurance: [employer] MEDICARE ADV Discharge Planning Comments: CM RECEIVED REQUEST TO MEET WITH PT AND HER FAMILY IN ROOM. CM MET WITH PT AND HER SON, ROCKY STEELE, , IN ROOM TO DISCUSS DISCHARGE NEEDS AND PLANNING. MIRIAN VALENZUELA provided verbal consent to discuss current and ongoing needs with/in the presence of: ROCKY, HER SON. PT REPORTS SHE WILL NEED A WALKER FOR DISCHARGE HOME NEXT WEEK AND MAY NEED OXYGEN. THEY WANT TO USE [employer] AND IF NOT IN INSURANCE NETWORK, ANY COMPANY WILL DO. CHOICE LETTER SIGNED. FOR DISCHARGE, PT WILL NEED A WALKER AND ALSO OXYGEN TESTING TO DETERMINE HOME OXYGEN NEEDS. PT WANTS TO USE [employer] OR ANY IN NETWORK PROVIDER WITH HER INSURANCE. CM TO CONTINUE TO FOLLOW AND ASSIST NEEDED. Manager Occupational: Joanne Cooley DCP- Discharge Planning Updated by [id number]: Ruby Penn on 07/30/18 5:[address] MET WITH PATIENT AND HER DAUGHTER IN LAW, SHRUTHI AT THE BEDSIDE. THE PATIENT GAVE PERMISSION TO SPEAK WITH SHRUTHI BEING PRESENT. PATIENT IS ALERT AND ORIENTED X4. PATIENT LIVES IN HER OWN HOME AND HER DAUGHTER, LEILA, LIVES WITH HER. SHE HAS GOOD FAMILY SUPPORT. WILL HAVE TRANSPORTATION TO HOME. SHE HAS ONE STEP TO ENTER HER HOME FROM THE FRONT DOOR. NO STEPS OR STAIRS FROM THE SIDE DOOR. 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 FALLING MORE FREQUENTLY AND STATES HER BALANCE IS POOR. SHE DOES NOT USE ANY DEVICE TO AMBULATE. DENIES ANY DME. PHYSICAL THERAPY EVAL MAYBE HELPFUL. PCP- DR CINDI JIMENEZ. PULOMONARY CONSULT- DR MARTINEZ- PATIENT IS WEARING NASAL O2 BUT DOES NOT HAVE OXYGEN AT HOME. SHE IS ON 2/L WITH O2 SAT OF 96% AT REST. PATIENT AND DAUGHTER IN LAW DENIES ANY NEEDS FOR SERVICES AT HOME AT THIS TIME. CM EXPLAINED CASE MANAGEMENT CAN ASSIST IF THEY CHANGE THEIR MINDS. WILL FOLLOW TO ASSIST IS APPROPRIATE. DCPIA - Discharge Planning Initial Assessment Updated by [id number]: Ruyb Harrisons on 07/30/18 6:07 pm * Is the patient Alert and Oriented? Yes * How many steps to enter\exit or inside your home? ONE * PCP DR CINDI ENNIS IN [place] * Pharmacy [facility] [address] [facility]. * Preadmission Environment Home with Family * ADLs Independent * Equipment None * Other Equipment DENIES DME * List name and contact numbers for known caregivers / representatives who currently or will assist patient after discharge: PABLITO BARRY [phone]- DAUGHTER * Verbal permission to speak to the caregivers and representatives has been obtained from the patient. Yes * Community resources currently utilized None * Please name any agencies selected above. N/A * Additional services required to return to the preadmission environment? No * Can the patient safely return to the preadmission environment? Yes * Has this patient been hospitalized within the prior 30 days at any hospital? No Coverage Notice Reviewer: [id number] - Joanne Cooley Notice Issued Date-Time: 08/07/2018 16:20 Notice Type: Patient Choice Letter Notice Delivered To: Patient Relationship to Patient: Quiller Tender Name: Delivery Method: HAND - Hand Delivered Negrita Days: Prior Verbal Notification: Recipient Understood Notice: Yes Recipient Signature: Yes Med Rec Note Co-signed by Attending: Coverage Notice Comment: DAVID Reviewer: [id number] Cooley Notice Issued Date-Time: 08/10/2018 13:00 Notice Type: IM Discharge Notice Notice Delivered To: Patient Relationship to Patient: Quiller Tender Name: Delivery Method: HAND - Hand Delivered Negrita Days: Prior Verbal Notification: Recipient Understood Notice: Yes Recipient Signature: Yes Med Rec Note Co-signed by Attending: Coverage Notice Comment: Reviewer: NATALY Cooley Notice Issued Date-Time: 08/10/2018 13:00 Notice Type: Patient Choice Letter Notice Delivered To: Patient Relationship to Patient: Quiller Tender Name: Delivery Method: HAND - Hand Delivered Negrita Days: Prior Verbal Notification: Recipient Understood Notice: Yes Recipient Signature: Yes Med Rec Note Co-signed by Attending: Coverage Notice Comment: HOME HEALTH IN INSURANCE NETWORK Reviewer: [id number] Cooley Notice Issued Date-Time: 08/10/2018 15:30 Notice Type: Patient Choice Letter Notice Delivered To: Patient Relationship to Patient: Quiller Tender Name: Delivery Method: HAND - Hand Delivered Negrita Days: Prior Verbal Notification: Recipient Understood Notice: Yes Recipient Signature: Yes Med Rec Note Co-signed by Attending: Coverage Notice Comment: IRA Alvarado DP export: 08/10/18 3:05 p Patient Name: MIRIAN VALENZUELA Page [phone] at 1712 All edits/amendments must be made on the electronic document DICTATION DATE: 08/10/181710 TRAY SETTER: TAYLOR 08/10/181710 RPT#: [id number] DC DATE: STATUS: ADM IN [facility] [address] [place] [address] END OF REPORT
--- NOTE | 2018-08-10 17:27 | NUR ---
DISCHARGE EDUCATION PROVIDED BOTH WRITTEN AND VERBAL. DENIES FURTHER QUESTIONS. PORTABLE O2 GIVEN TO PATIENT. IV REMOVED FROM [facility] WITH TIP INTACT. DISCHARGED HOME WITH FAMILY WITH ALL BELONGINGS.
--- NOTE | 2018-08-10 17:28 | NUR ---
ADDITION TO PREVIOUS NOTE. TELEMETRY REMOVED AND RETURNED.
== END 2018-08-10 18:02 | disposition home or self-care (01) | DRG 987 ==
LOC: D.ER 11:59 → D.M2 14:13 → D.EDHOLD 14:13 → D.M2 14:42
PROVIDERS: Family Medicine; Internal Medicine Pulmonary Disease; ADMIT Internal Medicine Nephrology; ATTEND Internal Medicine Nephrology
PROC: 0HBU3ZZ Excision of Left Breast, Percutaneous Approach (ICD-10-PCS; 2018-07-31)
PROC: 0BD48ZX Extraction of Right Upper Lobe Bronchus, Via Natural or Artificial Opening Endoscopic, Diagnostic (ICD-10-PCS; 2018-07-31)
PROC: 0BDC8ZX Extraction of Right Upper Lung Lobe, Via Natural or Artificial Opening Endoscopic, Diagnostic (ICD-10-PCS; 2018-07-31)
PROC: 0B9F8ZX Drainage of Right Lower Lung Lobe, Via Natural or Artificial Opening Endoscopic, Diagnostic (ICD-10-PCS; principal; 2018-07-31 16:00)
DX: J18.1 Lobar pneumonia, unspecified organism (principal); J96.01 Acute respiratory failure with hypoxia; J44.1 Chronic obstructive pulmonary disease with (acute) exacerbation; J44.0 Chronic obstructive pulmonary disease with (acute) lower respiratory infection; N17.9 Acute kidney failure, unspecified; F17.213 Nicotine dependence, cigarettes, with withdrawal; E46 Unspecified protein-calorie malnutrition; Z68.1 Body mass index [BMI] 19.9 or less, adult; R78.81 Bacteremia; E87.6 Hypokalemia; I11.0 Hypertensive heart disease with heart failure; I50.9 Heart failure, unspecified; L72.9 Follicular cyst of the skin and subcutaneous tissue, unspecified; N60.82 Other benign mammary dysplasias of left breast; B95.7 Other staphylococcus as the cause of diseases classified elsewhere